=== PATIENT | female | born 1975 | race Two or more races ===

== ENCOUNTER 2017-03-18 15:17 | Emergency (ER) | payer OTHER ==
[~2017-03-18] VITALS: Ht 144.8 cm; Wt 63.5 kg
[~2017-03-18 15:17] MED LIST: LISI-334 PO; ONDA4TAB10 SL
[2017-03-18] MEDS ORDERED: IV NORMAL SALINE 1000ML BAG 1,000 ML IV SCH (15:54)
[2017-03-18] MEDS ORDERED: 0.9 % SODIUM CHLORIDE 10 ML DISP.SYRIN. IV PRN (16:00)
[2017-03-18] MEDS ORDERED: LABETALOL 20 MG/4 ML DISP.SYRIN. IVP ONE (16:00)
--- NOTE | 2017-03-18 16:05 | PHYS DOC ---
Past Medical History Past Medical History: Hypertension, IBS Additional Past Medical Histor: CERVICAL CANCER,BOWEL OBSTRUCTION,vonwillebrand , radiation treatment Past Surgical History: Appendectomy, Cholecystectomy, Hysterectomy, Other Additional Past Surgical Histo: BOWEL RESECTION Alcohol Use: None Drug Use: None Adult General Chief Complaint Chief Complaint: HEADACHE HPI HPI This is a pleasant 42-year-old female with a history of IBS, bowel resection after cervical cancer radiation and short part of her bowel with recent bowel movement injection within the last year, history of migraines, history of prior cholecystectomy and appendectomy who presents as a 001 not having any menstrual periods because of headache and diarrhea. Patient has chronic diarrhea all the time the diarrheal stool is actually increased and watery consistency creating a feeling of dehydration. She denies any abdominal pain, nausea or vomiting. She does have a migraine headache described as frontal throbbing not worst of life and sudden onset by niece for eyes. She has some mildly blurred vision with photophobia which is typical for her. She denies any neck stiffness, actual change in vision, fevers, chills, URI symptoms, runny nose, sore throat, or numbness or tingling. Patient's headache is moderate to severe 9 of 10 not responsive to her typical medications. She denies any trauma , travel or sick contacts. Review of Systems Review of Systems Constitutional: Denies fever or chills [] Eyes: Denies change in visual acuity, redness, or eye pain [] HENT: Denies nasal congestion or sore throat [] Respiratory: Denies cough or shortness of breath [] Cardiovascular: No additional information not addressed in HPI [] GI: Patient denies any abdominal pain but is having nausea without vomiting she is having diarrhea described as loose without blood. : Denies dysuria or hematuria [] Musculoskeletal: Denies back pain or joint pain [] Integument: Denies rash or skin lesions [] Neurologic: He is having a frontal headache not worse of life and not sudden onset no focal weakness or sensory changes. Endocrine: Denies polyuria or polydipsia [] All other systems were reviewed and found to be within normal limits, except as documented in this note. Current Medications Current Medications Current Medications Medications (Trade) Dose Ordered Sig/Basilia Start Time Stop Time Status Last Admin Dose Admin Dexamethasone Sodium Phosphate (Decadron) 10 mg 1X ONCE 03/18/17 16:30 03/18/17 16:31 DC 03/18/17 16:27 10 MG Diphenhydramine HCl (Benadryl) 50 mg 1X ONCE 03/18/17 16:30 03/18/17 16:31 DC 03/18/17 16:33 50 MG Labetalol HCl (Normodyne) 20 mg 1X ONCE 03/18/17 16:00 03/18/17 16:01 DC 03/18/17 17:06 20 MG Lorazepam (Ativan) 1 mg 1X ONCE 03/18/17 16:00 03/18/17 16:01 DC 03/18/17 16:38 1 MG Prochlorperazine Edisylate (Compazine) 10 mg 1X ONCE 03/18/17 16:30 03/18/17 16:31 DC 03/18/17 16:41 10 MG Sodium Chloride (Normal Saline Flush) 10 ml QSHIFT PRN 03/18/17 16:00 Allergies Allergies Allergies Coded Allergies Type Severity Reaction Last Updated Verified aspirin Adverse Reaction Severe bleeding 12/14/15 Yes ibuprofen Adverse Reaction Severe bleeding 12/14/15 Yes Physical Exam Physical Exam Vital signs recorded on the chart patient to be very hypertensive. He 226/128 Constitutional: Well developed, well nourished, this patient is very uncomfortable but nontoxic in appearance HENT: Normocephalic, atraumatic, bilateral external ears normal, dry mucous membranes., no oral exudates, nose normal. [] Eyes: PERRLA, EOMI, conjunctiva normal, no discharge. [] Neck: Normal range of motion, no tenderness, supple, no stridor. [] Cardiovascular:Heart rate regular rhythm, no murmur [] Lungs & Thorax: Bilateral breath sounds clear to auscultation [] Abdomen: Bowel sounds are hyperactive abdomen is soft nondistended no guarding rebound or organomegaly. Skin: Warm, dry, no erythema, no rash. [] Back: No tenderness, Extremities: No tenderness, no cyanosis, no clubbing, ROM intact, no edema. [] Neurologic: Alert and oriented X 3, normal motor function, normal sensory function, no focal deficits noted. [] Psychologic: Affect normal, judgement normal, mood normal. [] Current Patient Data Vital Signs Vital Signs Date Time Temp Pulse Resp B/P (MAP) Pulse Ox O2 Delivery O2 Flow Rate FiO2 03/18/17 17:06 82 204/95 03/18/17 15:50 98.2 20 97 Room Air 98.2 Lab Values Laboratory Tests Test 03/18/17 15:55 03/18/17 16:10 Urine Collection Type Unknown Urine Color Yellow Urine Clarity Clear Urine pH 6.0 Urine Specific [place] 1.020 Urine Protein Negative mg/dL (NEG-TRACE) Urine Glucose (UA) Negative mg/dL (NEG) Urine Ketones (Stick) Negative mg/dL (NEG) Urine Blood Moderate (NEG) Urine Nitrite Negative (NEG) Urine Bilirubin Negative (NEG) Urine Urobilinogen Dipstick 0.2 mg/dL (0.2 mg/dL) Urine Leukocyte Esterase Negative (NEG) Urine RBC Occ /HPF (0-2) Urine WBC Rare /HPF (0-4) Urine Squamous Epithelial Cells Mod /LPF Urine Bacteria Few /HPF (0-FEW) Urine Mucus Marked /LPF White Blood Count 8.1 x10^3/uL (4.0-11.0) Red Blood Count 4.29 x10^6/uL (3.50-5.40) Hemoglobin 13.3 g/dL (12.0-15.5) Hematocrit 39.3 % (36.0-47.0) Mean Corpuscular Volume 92 fL (79-100) Mean Corpuscular Hemoglobin 31 pg (25-35) Mean Corpuscular Hemoglobin Concent 34 g/dL (31-37) Red Cell Distribution Width 12.6 % (11.5-14.5) Platelet Count 214 x10^3/uL (140-400) Neutrophils (%) (Auto) 85 % (31-73) H Lymphocytes (%) (Auto) 11 % (24-48) L Monocytes (%) (Auto) 4 % (0-9) Eosinophils (%) (Auto) 1 % (0-3) Basophils (%) (Auto) 0 % (0-3) Neutrophils # (Auto) 6.8 x10^3uL (1.8-7.7) Lymphocytes # (Auto) 0.9 x10^3/uL (1.0-4.8) L Monocytes # (Auto) 0.3 x10^3/uL (0.0-1.1) Eosinophils # (Auto) 0.0 x10^3/uL (0.0-0.7) Basophils # (Auto) 0.0 x10^3/uL (0.0-0.2) Sodium Level 138 mmol/L (136-145) Potassium Level 3.9 mmol/L (3.5-5.1) Chloride Level 102 mmol/L (98-107) Carbon Dioxide Level 27 mmol/L (21-32) Anion Gap 9 (6-14) Blood Urea Nitrogen 13 mg/dL (7-20) Creatinine 0.8 mg/dL (0.6-1.0) Estimated GFR (Cockcroft-Gault) 78.3 Glucose Level 110 mg/dL (70-99) H Calcium Level 8.7 mg/dL (8.5-10.1) Total Bilirubin 0.5 mg/dL (0.2-1.0) Direct Bilirubin 0.1 mg/dL (0.0-0.2) Aspartate Amino Transferase (AST) 38 U/L (15-37) H Alanine Aminotransferase (ALT) 90 U/L (14-59) H Alkaline Phosphatase 143 U/L (46-116) H Total Protein 7.3 g/dL (6.4-8.2) Albumin 3.9 g/dL (3.4-5.0) Lipase 74 U/L (73-393) Laboratory Tests 03/18/17 16:10 Laboratory Tests 03/18/17 16:10 EKG EKG [] Radiology/Procedures Radiology/Procedures [] IMAGING REPORT Signed PATIENT: ELIESER WALTON ACCOUNT: [id number] : 1975 LOCATION: ER AGE: 42 SEX: F EXAM STATUS: REG ER ORD. PHYSICIAN: REMINGTON WYATT MD REASON: headache with htn PROCEDURE: CT HEAD WO CONTRAST PQRS Compliance Statement: One or more of the following individualized dose reduction techniques were utilized for this examination: 1. Automated exposure control 2. Adjustment of the mA and/or kV according to patient size 3. Use of iterative reconstruction technique CT HEAD WITHOUT CONTRAST History: headache with htn . Comparison: None. Procedure: Axial images are obtained of the head from the skull base through the vertex without IV contrast. Findings: Garcia-white matter differentiation is preserved. The ventricles and sulci are normal for the patient's age.. No mass-effect, midline shift, hemorrhage or obvious acute infarction is identified. Basilar cisterns are patent. Bone windows demonstrate no significant calvarial abnormality. Mucous retention cyst or polyp right maxillary sinus. Maxillary sinuses incompletely imaged. The visualized paranasal sinuses otherwise appear clear. Mastoid air cells are well aerated. IMPRESSION: No acute intracranial abnormality. Course & Med Decision Making Course & Med Decision Making Pertinent Labs and Imaging studies reviewed. (See chart for details) []She presents with diarrhea and mild nausea with obvious signs of dehydration on physical exam with a frontal headache not worse of life consistent with her primary is. Patient has significant hypertension elevated as 226/128 I will give her IV fluids antiemetics pain medications none narcotic nature as well as CAT scan of the head to sure that she has no intracranial hemorrhage or mass lesion causing her symptoms. Patient tells me that their symptoms given during CC are improved. We reviewed labs and radiology reports with patient and any family at bedside. 5:15 PM sleeping quietly blood pressure is 166/82 patient's headache is on was completely dissipated. MDM headache reevaluation: The patient presented to the emergency part with headache. The patient is now resting comfortably and feels better, is awake, talkative, interactive, and in no acute distress. The patient appears well and is able to tolerate by mouth fluids and medications. Repeat evaluation is unremarkable without any specific neurologic findings. The patient is neurologically intact, has normal mental status, and is ambulatory in the ED. The history, exam, and any diagnostic testing completed in the ED (if any) and the patient's current condition do not suggest meningitis, stroke, sepsis, subarachnoid hemorrhage, intracranial bleed , encephalitis, temporal arteritis, or other significant pathology warranting further testing and continue treatment in the ED. At this point I do not believe admission or neurologic consultation or other specialist evaluation are needed at this point. The patient's vital signs have been stabilized. Patient' s condition is stable and appropriate for discharge. The patient will pursue further up and evaluation with primary care and other designated resources or consulting physicians as indicated in the discharge instructions. Dragon Disclaimer Dragon Disclaimer This electronic medical record was generated, in whole or in part, using a voice recognition dictation system. Departure Departure Impression: Primary Impression: Diarrhea Additional Impressions: Migraine Hypertension Disposition: HOME, SELF-CARE Condition: IMPROVED Referrals: NO PCP (PCP) Patient Instructions: Diarrhea, Hypertension, Migraine Headache Additional Instructions: discharge: I've spoken with the patient and/or caregivers. I've explained the patient's condition, diagnosis and treatment plan based on information available to me at this time. I've answered the patient's and/or caregivers questions and addressed any concerns. The patient and/or caregivers have a good understanding the patient's diagnosis, condition and treatment plan as can be expected at this point. Vital signs have been stabilized. The patient's condition is stable for discharge from the emergency department. The patient will pursue further outpatient evaluation with her primary care provider or other designated consulting physician as outlined in the discharge instructions. Patient and/or caregivers are agreeable to this plan of care and follow-up instructions have been explained in detail. The patient and/or caregivers have received these instructions in written format and expressed understanding of these discharge instructions. The patient and her caregivers are aware that if any significant change in condition or worsening of symptoms should prompt him to immediately return to this of the closest emergency department. If an emergent department is not readily available I would encourage him to call 911. . Because patient does not have a regular medical doctor, a local physician Resource Sheet will be provided to establish care primary care. Scripts Diphenoxylate Hcl/Atropine (LOMOTIL TABLET) 1 Each Tablet 1 TAB PO QID, #20 TAB Prov: REMINGTON WYATT MD 03/18/17 Sumatriptan Succinate (IMITREX) 100 Mg Tablet 1 TAB PO UD, #9 TAB 1 Refill Prov: REMINGTON WYATT MD 03/18/17 Prochlorperazine Maleate (Compazine) 10 Mg Tablet 10 MG PO TID for 5 Days, #15 TAB Prov: REMINGTON WYATT MD 03/18/17 Problem Qualifiers REMINGTON WYATT MD Mar 18, 2017 16:05
[2017-03-18 16:15] LABS: BASO % 0 % (0-3); EOS % 1 % (0-3); HEMATOCRIT 39.3 % (36.0-47.0); HEMOGLOBIN 13.3 g/dL (12.0-15.5); LYMPH # 0.9 x10^3/uL (1.0-4.8); LYMPH % 11 % (24-48); MEAN CORPUSCULAR HEMOGLOBIN 31 pg (25-35); MEAN CORPUSCULAR HGB CONC 34 g/dL (31-37); MEAN CORPUSCULAR VOLUME 92 fL (79-100); MONO % 4 % (0-9); NEUT % 85 % (31-73); PLATELET COUNT 214 x10^3/uL (140-400); RED BLOOD COUNT 4.29 x10^6/uL (3.50-5.40); RED CELL DISTRIBUTION WIDTH 12.6 % (11.5-14.5); WHITE BLOOD COUNT 8.1 x10^3/uL (4.0-11.0)
[2017-03-18 16:16] LABS: BILIRUBIN,URINE NEGATIVE (NEG); GLUCOSE,URINE NEGATIVE (NEG); NITRITE,URINE NEGATIVE (NEG); PROTEIN,URINE NEGATIVE (NEG-TRACE); UROBILINOGEN,URINE 0.2 mg/dL (0.2 mg/dL)
[2017-03-18] MEDS ORDERED: DEXAMETHASONE SOD PHOS 20 MG/5 ML VIAL. IV ONE (16:30)
[2017-03-18] MEDS ORDERED: diphenhydrAMINE 50 MG/ML VIAL IVP ONE (16:30)
[2017-03-18] MEDS ORDERED: PROCHLORPERAZINE 10 MG/2 ML VIAL. IV ONE (16:30)
[2017-03-18 16:32] LABS: RBC,URINE OCC /HPF (0-2)
[2017-03-18 16:33] LABS: BACTERIA,URINE FEW /HPF (0-FEW); SQUAMOUS EPITHELIAL CELL,UR MOD /LPF; WBC,URINE RARE /HPF (0-4)
[2017-03-18 16:38] LABS: CALCIUM 8.7 mg/dL (8.5-10.1); CREATININE 0.8 mg/dL (0.6-1.0); GFR 78.3; POTASSIUM 3.9 mmol/L (3.5-5.1)
[2017-03-18 16:42] LABS: ALBUMIN 3.9 g/dL (3.4-5.0); DIRECT BILIRUBIN 0.1 mg/dL (0.0-0.2); TOTAL BILIRUBIN 0.5 mg/dL (0.2-1.0); TOTAL PROTEIN 7.3 g/dL (6.4-8.2)
--- NOTE | 2017-03-18 17:05 | RAD ---
PQRS Compliance Statement: One or more of the following individualized dose reduction techniques were utilized for this examination: 1. Automated exposure control 2. Adjustment of the mA and/or kV according to patient size 3. Use of iterative reconstruction technique CT HEAD WITHOUT CONTRAST History: headache with htn . Comparison: None. Procedure: Axial images are obtained of the head from the skull base through the vertex without IV contrast. Findings: Garcia-white matter differentiation is preserved. The ventricles and sulci are normal for the patient's age.. No mass-effect, midline shift, hemorrhage or obvious acute infarction is identified. Basilar cisterns are patent. Bone windows demonstrate no significant calvarial abnormality. Mucous retention cyst or polyp right maxillary sinus. Maxillary sinuses incompletely imaged. The visualized paranasal sinuses otherwise appear clear. Mastoid air cells are well aerated. IMPRESSION: No acute intracranial abnormality.
[2017-03-18 17:15] VITALS: BP 169/69
[2017-03-18] MEDS ORDERED: PROC10TA57 PO (17:27)
[2017-03-18] MEDS ORDERED: DIPH1TAB PO (17:27)
[2017-03-18] MEDS ORDERED: SUMA100T3 PO (17:27)
== END 2017-03-18 18:20 | disposition home or self-care (01) ==
LOC: ER 15:17
DX: R19.7 Diarrhea, unspecified (principal); G43.909 Migraine, unspecified, not intractable, without status migrainosus; I10 Essential (primary) hypertension; K58.9 Irritable bowel syndrome, unspecified; K56.609 Unspecified intestinal obstruction, unspecified as to partial versus complete obstruction; Z88.6 Allergy status to analgesic agent; Z90.49 Acquired absence of other specified parts of digestive tract
CPT/HCPCS: 36415; 70450; 80048; 80076; 81001; 81025; 83690; 85025; 96361; 96374; 96375; 99285; J0780; J1100; J1200; J2060; J3490; J7030

== ENCOUNTER 2018-01-12 04:28 | Emergency (ER) | payer SELFPAY ==
[~2018-01-12] VITALS: Ht 157.5 cm; Wt 74.8 kg
[~2018-01-12 04:28] MED LIST changes: +DIPH1TAB PO; +PROC10TA57 PO; +SUMA100T3 PO
[2018-01-12] MEDS ORDERED: DEXAMETHASONE 4 MG TABLET ONE (04:52)
[2018-01-12] MEDS ORDERED: ORPHENADRINE CITRATE 60 MG/2 ML VIAL. IM ONE (05:00)
[2018-01-12] MEDS ORDERED: LIDOCAINE (700MG/PATCH) PATCH. TD ONE (05:00)
[2018-01-12] MEDS ORDERED: DEXAMETHASONE 4 MG TABLET PO ONE (05:00)
[2018-01-12] MEDS ORDERED: HYDROcodone/APAP 5/325MG 1 TAB TABLET PO ONE (05:00)
[2018-01-12] MEDS ORDERED: LIDO700A39 TP (05:36)
[2018-01-12] MEDS ORDERED: ORPH100T PO (05:36)
[2018-01-12] MEDS ORDERED: HYDR-971 PO (05:36)
[2018-01-12] MEDS ORDERED: PRED20TA PO (05:36)
--- NOTE | 2018-01-12 05:36 | PHYS DOC ---
Past Medical History Past Medical History: Hypertension, IBS Additional Past Medical Histor: CERVICAL CANCER,BOWEL OBSTRUCTION,vonwillebrand , radiation treatment Past Surgical History: Appendectomy, Cholecystectomy, Hysterectomy, Other Additional Past Surgical Histo: BOWEL RESECTION Alcohol Use: None Drug Use: None Adult General Chief Complaint Chief Complaint: LOWER BACK PAIN OR INJURY HPI HPI Patient is a 42 year old [f__sex] who presents with [] Review of Systems Review of Systems Constitutional: Denies fever or chills [] Eyes: Denies change in visual acuity, redness, or eye pain [] HENT: Denies nasal congestion or sore throat [] Respiratory: Denies cough or shortness of breath [] Cardiovascular: No additional information not addressed in HPI [] GI: Denies abdominal pain, nausea, vomiting, bloody stools or diarrhea [] : Denies dysuria or hematuria [] Musculoskeletal: Denies back pain or joint pain [] Integument: Denies rash or skin lesions [] Neurologic: Denies headache, focal weakness or sensory changes [] Endocrine: Denies polyuria or polydipsia [] All other systems were reviewed and found to be within normal limits, except as documented in this note. Current Medications Current Medications Current Medications Medications (Trade) Dose Ordered Sig/Basilia Start Time Stop Time Status Last Admin Dose Admin Acetaminophen/ Hydrocodone Bitart (Lortab 5/325) 2 tab 1X ONCE 01/12/18 05:00 01/12/18 05:01 DC 01/12/18 05:03 2 TAB Dexamethasone (Decadron) 4 mg STK-MED ONCE 01/12/18 04:52 01/12/18 04:53 DC Lidocaine (Lidoderm) 1 patch 1X ONCE 01/12/18 05:00 01/12/18 05:01 DC 01/12/18 05:04 1 PATCH Orphenadrine Citrate (Norflex) 60 mg 1X ONCE 01/12/18 05:00 01/12/18 05:01 DC 01/12/18 05:04 60 MG Allergies Allergies Allergies Coded Allergies Type Severity Reaction Last Updated Verified aspirin Adverse Reaction Severe bleeding 12/14/15 Yes ibuprofen Adverse Reaction Severe bleeding 12/14/15 Yes Physical Exam Physical Exam Constitutional: Well developed, well nourished, no acute distress, non-toxic appearance. [] HENT: Normocephalic, atraumatic, bilateral external ears normal, oropharynx moist, no oral exudates, nose normal. [] Eyes: PERRLA, EOMI, conjunctiva normal, no discharge. [] Neck: Normal range of motion, no tenderness, supple, no stridor. [] Cardiovascular:Heart rate regular rhythm, no murmur [] Lungs & Thorax: Bilateral breath sounds clear to auscultation [] Abdomen: Bowel sounds normal, soft, no tenderness, no masses, no pulsatile masses. [] Skin: Warm, dry, no erythema, no rash. [] Back: No tenderness, no CVA tenderness. [] Extremities: No tenderness, no cyanosis, no clubbing, ROM intact, no edema. [] Neurologic: Alert and oriented X 3, normal motor function, normal sensory function, no focal deficits noted. [] Psychologic: Affect normal, judgement normal, mood normal. [] Current Patient Data Vital Signs Vital Signs Date Time Temp Pulse Resp B/P (MAP) Pulse Ox O2 Delivery O2 Flow Rate FiO2 01/12/18 05:03 18 99 EKG EKG [] Radiology/Procedures Radiology/Procedures [] Course & Med Decision Making Course & Med Decision Making Pertinent Labs and Imaging studies reviewed. (See chart for details) [] Dragon Disclaimer Dragon Disclaimer This electronic medical record was generated, in whole or in part, using a voice recognition dictation system. Departure Departure Impression: Primary Impression: Low back pain Additional Impression: Sciatica Disposition: 01 HOME, SELF-CARE Condition: IMPROVED Referrals: NO PCP (PCP) LESLY PHIPPS MD Patient Instructions: Back Pain, Adult, [id number], Sciatica, [id number] Scripts Lidocaine (Lidocaine) 1 Each Adh..patch 1 EACH TP Q12HR PRN for PAIN, #10 PATCH Please remove lidoderm patch for at least 12 hours daily. Prov: LISA HOUSE DO 01/12/18 Prednisone (PREDNISONE) 20 Mg Tablet 2 TAB PO DAILY, #8 TAB Prov: LISA HOUSE DO 01/12/18 Orphenadrine Citrate (ORPHENADRINE CITRATE) 100 Mg Tablet.er 1 TAB PO BID, #14 TAB 0 Refills Prov: LISA HOUSE DO 01/12/18 Hydrocodone/Apap 5-325 (NORCO 5-325 TABLET) 1 Each Tablet 1 TAB PO PRN Q6HRS PRN for PAIN, #14 TAB 0 Refills Prov: LISA HOUSE DO 01/12/18 Problem Qualifiers Primary Impression: Low back pain Chronicity: acute Back pain laterality: right Sciatica presence: with sciatica Sciatica laterality: sciatica of right side Qualified Codes: M54.41 - Lumbago with sciatica, right side Additional Impression: Sciatica Laterality: right Qualified Codes: M54.31 - Sciatica, right side LISA HOUSE DO Jan 12, 2018 05:36
[2018-01-12 05:39] VITALS: BP 210/100
== END 2018-01-12 05:54 | disposition home or self-care (01) ==
LOC: ER 04:28
DX: M54.41 Lumbago with sciatica, right side (principal); I10 Essential (primary) hypertension; Z90.49 Acquired absence of other specified parts of digestive tract; Z90.710 Acquired absence of both cervix and uterus; Z90.89 Acquired absence of other organs; Z88.6 Allergy status to analgesic agent
CPT/HCPCS: 96372; 99284; J2360; J8540

== ENCOUNTER 2018-11-01 09:06 | Inpatient (IN) | payer SELFPAY ==
[~2018-11-01] VITALS: Ht 144.8 cm; Wt 65.8 kg
[~2018-11-01 09:06] MED LIST changes: +HYDR-3164 PO; +LIDO700A21 TP; +ORPH100T PO; +PRED20TA PO
[2018-11-01] MEDS ORDERED: MORPHINE SULFATE 10 MG/ML VIAL. IV ONE ×2 (09:30→12:00)
[2018-11-01] MEDS ORDERED: IV NORMAL SALINE 1000ML BAG 1,000 ML IV ONE ×2 (09:30→13:45)
[2018-11-01] MEDS ORDERED: ONDANSETRON PF 4 MG/2 ML VIAL. IV ONE (09:30)
--- NOTE | 2018-11-01 09:49 | PHYS DOC ---
Past Medical History Past Medical History: Gallstones, Other Additional Past Medical Histor: BOWEL OBSTRUCTION, CERVICAL CANCER, RADIATION, Past Surgical History: Appendectomy, Cholecystectomy, Hysterectomy Additional Past Surgical Histo: BOWEL RESECTION, HYSTERECTOMY D/T CERVICAL CA Alcohol Use: Rarely Drug Use: None Adult General Chief Complaint Chief Complaint: ABDOMINAL PAIN HPI HPI Patient is a 43 year old female with a history of cholecystectomy, appendectomy, small bowel obstructions with bowel resection, cervical cancer and treated, who presents to the ED today complaining of 8 out of 10 generalized abdominal pain with nausea and vomiting that began this morning. Patient denies anything specifically exacerbating or relieving the pain. Patient states she had a normal bowel movement today. Review of Systems Review of Systems Constitutional: Denies fever or chills [] Eyes: Denies change in visual acuity, redness, or eye pain [] HENT: Denies nasal congestion or sore throat [] Respiratory: Denies cough or shortness of breath [] Cardiovascular: No additional information not addressed in HPI [] GI: Reports abdominal pain, nausea and vomiting, denies bloody stools or diarrhea [] : Denies dysuria or hematuria [] Musculoskeletal: Denies back pain or joint pain [] Integument: Denies rash or skin lesions [] Neurologic: Denies headache, focal weakness or sensory changes [] All other systems were reviewed and found to be within normal limits, except as documented in this note. Current Medications Current Medications Current Medications Medications (Trade) Dose Ordered Sig/Basilia Start Time Stop Time Status Last Admin Dose Admin Info (CONTRAST GIVEN -- Rx MONITORING) 1 each PRN DAILY PRN 11/01/18 10:15 11/03/18 10:14 Iohexol (Omnipaque 300 Mg/ml) 75 ml 1X ONCE 11/01/18 10:15 11/01/18 10:16 DC 11/01/18 10:19 75 ML Morphine Sulfate (Morphine Sulfate) 4 mg PRN Q4HRS PRN 11/01/18 13:15 Ondansetron HCl (Zofran) 4 mg PRN Q8HRS PRN 11/01/18 13:15 Sodium Chloride 1,000 ml @ 1,000 mls/hr 1X ONCE 11/01/18 09:30 11/01/18 10:29 DC 11/01/18 09:47 1,000 MLS/HR Allergies Allergies Allergies Coded Allergies Type Severity Reaction Last Updated Verified aspirin Adverse Reaction Severe bleeding 12/14/15 Yes ibuprofen Adverse Reaction Severe bleeding 12/14/15 Yes Physical Exam Physical Exam Constitutional: Well developed, well nourished, no acute distress, non-toxic appearance. [] HENT: Normocephalic, atraumatic, bilateral external ears normal, oropharynx moist, no oral exudates, nose normal. [] Eyes: PERRLA, EOMI, conjunctiva normal, no discharge. [] Neck: Normal range of motion, no tenderness, supple, no stridor. [] Cardiovascular:Heart rate regular rhythm, no murmur [] Lungs & Thorax: Bilateral breath sounds clear to auscultation [] Abdomen: Diminished bowel sounds, tenderness diffusely throughout the abdomen, no masses, no pulsatile masses. [] Skin: Warm, dry, no erythema, no rash. [] Back: No tenderness, no CVA tenderness. [] Extremities: No tenderness, no cyanosis, no clubbing, ROM intact, no edema. [] Neurologic: Alert and oriented X 3, normal motor function, normal sensory function, no focal deficits noted. [] Psychologic: Affect normal, judgement normal, mood normal. [] Current Patient Data Vital Signs Vital Signs Date Time Temp Pulse Resp B/P (MAP) Pulse Ox O2 Delivery O2 Flow Rate FiO2 11/01/18 12:15 17 97 Room Air 11/01/18 11:00 64 180/92 (121) 11/01/18 09:35 97.7 97.7 Lab Values Laboratory Tests Test 11/01/18 09:22 11/01/18 09:40 White Blood Count 6.7 x10^3/uL (4.0-11.0) Red Blood Count 4.29 x10^6/uL (3.50-5.40) Hemoglobin 13.3 g/dL (12.0-15.5) Hematocrit 39.3 % (36.0-47.0) Mean Corpuscular Volume 92 fL (79-100) Mean Corpuscular Hemoglobin 31 pg (25-35) Mean Corpuscular Hemoglobin Concent 34 g/dL (31-37) Red Cell Distribution Width 12.8 % (11.5-14.5) Platelet Count 186 x10^3/uL (140-400) Neutrophils (%) (Auto) 70 % (31-73) Lymphocytes (%) (Auto) 18 % (24-48) L Monocytes (%) (Auto) 7 % (0-9) Eosinophils (%) (Auto) 5 % (0-3) H Basophils (%) (Auto) 1 % (0-3) Neutrophils # (Auto) 4.7 x10^3uL (1.8-7.7) Lymphocytes # (Auto) 1.2 x10^3/uL (1.0-4.8) Monocytes # (Auto) 0.5 x10^3/uL (0.0-1.1) Eosinophils # (Auto) 0.3 x10^3/uL (0.0-0.7) Basophils # (Auto) 0.0 x10^3/uL (0.0-0.2) Urine Collection Type Unknown Urine Color Yellow Urine Clarity Clear Urine pH 5.5 Urine Specific [place] 1.020 Urine Protein Negative mg/dL (NEG-TRACE) Urine Glucose (UA) Negative mg/dL (NEG) Urine Ketones (Stick) Negative mg/dL (NEG) Urine Blood Small (NEG) Urine Nitrite Negative (NEG) Urine Bilirubin Negative (NEG) Urine Urobilinogen Dipstick 0.2 mg/dL (0.2 mg/dL) Urine Leukocyte Esterase Negative (NEG) Urine RBC 1-2 /HPF (0-2) Urine WBC 0 /HPF (0-4) Urine Squamous Epithelial Cells Few /LPF Urine Bacteria 0 /HPF (0-FEW) Sodium Level 139 mmol/L (136-145) Potassium Level 4.1 mmol/L (3.5-5.1) Chloride Level 106 mmol/L (98-107) Carbon Dioxide Level 25 mmol/L (21-32) Anion Gap 8 (6-14) Blood Urea Nitrogen 13 mg/dL (7-20) Creatinine 1.0 mg/dL (0.6-1.0) Estimated GFR (Cockcroft-Gault) 60.2 BUN/Creatinine Ratio 13 (6-20) Glucose Level 104 mg/dL (70-99) H Calcium Level 8.8 mg/dL (8.5-10.1) Total Bilirubin 0.5 mg/dL (0.2-1.0) Aspartate Amino Transferase (AST) 35 U/L (15-37) Alanine Aminotransferase (ALT) 56 U/L (14-59) Alkaline Phosphatase 112 U/L (46-116) Total Protein 6.8 g/dL (6.4-8.2) Albumin 3.6 g/dL (3.4-5.0) Albumin/Globulin Ratio 1.1 (1.0-1.7) Lipase 92 U/L (73-393) Urine Opiates Screen Neg (NEG) Urine Methadone Screen Neg (NEG) Urine Barbiturates Neg (NEG) Urine Phencyclidine Screen Neg (NEG) Urine Amphetamine/Methamphetamine Neg (NEG) Urine Benzodiazepines Screen Neg (NEG) Urine Cocaine Screen Neg (NEG) Urine Cannabinoids Screen Neg (NEG) Ethyl Alcohol Level < 10 mg/dL (0-10) Urine Ethyl Alcohol Neg (NEG) Laboratory Tests 11/01/18 09:22 Laboratory Tests 11/01/18 09:40 EKG EKG [] Radiology/Procedures Radiology/Procedures []PROCEDURE: CT ABD PELV W/ IV CONTRST ONLY PQRS Compliance Statement: One or more of the following individualized dose reduction techniques were utilized for this examination: 1. Automated exposure control 2. Adjustment of the mA and/or kV according to patient size 3. Use of iterative reconstruction technique CT ABD PELV W/ IV CONTRST ONLY Clinical Indication: Generalized abdominal pain. Comparison: CT abdomen and pelvis with contrast, December 27, 2015. Technique: Helical CT imaging of the abdomen and pelvis is performed after 75 cc of Omnipaque 300 IV contrast. Oral contrast not given. Findings: Mild atelectasis in the right lung base. Cardiac size normal. Cholecystectomy. Liver, spleen, pancreas, adrenal glands, and abdominal aorta are normal. Kidneys enhance symmetrically, no hydronephrosis. There is mild right hydroureter. No ureteral calculus or periureteral stranding is seen. Stomach unremarkable. There is small bowel anastomosis, perianastomotic small bowel is dilated, similar to prior study. Distal small bowel loops are dilated and fluid-filled. Small bowel proximal to the anastomosis is thick-walled, for example image 55. The terminal ileum is normal caliber. Appendectomy. No colon wall thickening. No abdominal adenopathy or free fluid. Urinary bladder is normal. Hysterectomy. No pelvic free fluid. Degenerative endplate spurring of the thoracic spine. Arthropathy of the bilateral hips. IMPRESSION: There is distal small bowel obstruction. Small bowel proximal to the surgical anastomosis is thick-walled, and this may be the point of transition. Wall thickening of the small bowel may be due to enteritis, peristalsis, or stricture. Electronically signed by: Andrea Wilson MD (11/01/2018 11:28 AM) [id number] DICTATED and SIGNED BY: ANDREA WILSON MD DATE: 11/01/18 1128 Course & Med Decision Making Course & Med Decision Making Pertinent Labs and Imaging studies reviewed. (See chart for details) This is a 43-year-old female patient who presents to the ED today complaining of generalized abdominal pain with nausea and vomiting since this morning. CBC, CMP, lipase, urine analysis-negative for any acute findings CT of the abdomen and pelvic was noted for small bowel obstruction. [id number] Low who will f/u with patient Spoke with Dr. Aragon accepted patient for admission. Dragon Disclaimer Dragon Disclaimer This electronic medical record was generated, in whole or in part, using a voice recognition dictation system. Departure Departure Impression: Primary Impression: SBO (small bowel obstruction) Disposition: ADMITTED INPATIENT Condition: STABLE Referrals: NO PCP (PCP) KAN BARR [employer] MACH[employer] APPRENTICE Nov 01, 2018 09:49
[2018-11-01 09:55] LABS: BASO % 1 % (0-3); EOS # 0.3 x10^3/uL (0.0-0.7); EOS % 5 % (0-3); HEMATOCRIT 39.3 % (36.0-47.0); HEMOGLOBIN 13.3 g/dL (12.0-15.5); LYMPH # 1.2 x10^3/uL (1.0-4.8); LYMPH % 18 % (24-48); MEAN CORPUSCULAR HEMOGLOBIN 31 pg (25-35); MEAN CORPUSCULAR HGB CONC 34 g/dL (31-37); MEAN CORPUSCULAR VOLUME 92 fL (79-100); MONO # 0.5 x10^3/uL (0.0-1.1); MONO % 7 % (0-9); NEUT # 4.7 x10^3uL (1.8-7.7); NEUT % 70 % (31-73); PLATELET COUNT 186 x10^3/uL (140-400); RED BLOOD COUNT 4.29 x10^6/uL (3.50-5.40); RED CELL DISTRIBUTION WIDTH 12.8 % (11.5-14.5); WHITE BLOOD COUNT 6.7 x10^3/uL (4.0-11.0)
[2018-11-01 10:03] LABS: BILIRUBIN,URINE NEGATIVE (NEG); CLARITY,URINE CLEAR; COLOR,URINE YELLOW; NITRITE,URINE NEGATIVE (NEG); PH,URINE 5.5; PROTEIN,URINE NEGATIVE (NEG-TRACE); UROBILINOGEN,URINE 0.2 mg/dL (0.2 mg/dL)
[2018-11-01 10:03] LABS: CALCIUM 8.8 mg/dL (8.5-10.1); GFR 60.2; POTASSIUM 4.1 mmol/L (3.5-5.1)
[2018-11-01 10:09] LABS: ALBUMIN 3.6 g/dL (3.4-5.0); ALBUMIN/GLOBULIN RATIO 1.1 (1.0-1.7); TOTAL BILIRUBIN 0.5 mg/dL (0.2-1.0); TOTAL PROTEIN 6.8 g/dL (6.4-8.2)
[2018-11-01 10:10] LABS: BARBITURATES NEG (NEG); BENZODIAZEPINES NEG (NEG); CANNABINOIDS NEG (NEG); COCAINE NEG (NEG); METHADONE NEG (NEG); OPIATES NEG (NEG); PHENCYCLIDINE NEG (NEG)
[2018-11-01 10:11] LABS: AMPHETAMINE/METHAMPHETAMINE NEG (NEG)
[2018-11-01] MEDS ORDERED: CONTRAST GIVEN. MC PRN (10:15)
[2018-11-01] MEDS ORDERED: IOHEXOL 300 MG/ML 100ML VIAL. IV ONE (10:15)
[2018-11-01 10:34] LABS: BACTERIA,URINE 0 /HPF (0-FEW); SQUAMOUS EPITHELIAL CELL,UR FEW /LPF; WBC,URINE 0 /HPF (0-4)
--- NOTE | 2018-11-01 11:31 | RAD ---
PQRS Compliance Statement: One or more of the following individualized dose reduction techniques were utilized for this examination: 1. Automated exposure control 2. Adjustment of the mA and/or kV according to patient size 3. Use of iterative reconstruction technique CT ABD PELV W/ IV CONTRST ONLY Clinical Indication: Generalized abdominal pain. Comparison: CT abdomen and pelvis with contrast, December 27, 2015. Technique: Helical CT imaging of the abdomen and pelvis is performed after 75 cc of Omnipaque 300 IV contrast. Oral contrast not given. Findings: Mild atelectasis in the right lung base. Cardiac size normal. Cholecystectomy. Liver, spleen, pancreas, adrenal glands, and abdominal aorta are normal. Kidneys enhance symmetrically, no hydronephrosis. There is mild right hydroureter. No ureteral calculus or periureteral stranding is seen. Stomach unremarkable. There is small bowel anastomosis, perianastomotic small bowel is dilated, similar to prior study. Distal small bowel loops are dilated and fluid-filled. Small bowel proximal to the anastomosis is thick-walled, for example image 55. The terminal ileum is normal caliber. Appendectomy. No colon wall thickening. No abdominal adenopathy or free fluid. Urinary bladder is normal. Hysterectomy. No pelvic free fluid. Degenerative endplate spurring of the thoracic spine. Arthropathy of the bilateral hips. IMPRESSION: There is distal small bowel obstruction. Small bowel proximal to the surgical anastomosis is thick-walled, and this may be the point of transition. Wall thickening of the small bowel may be due to enteritis, peristalsis, or stricture. Electronically signed by: Andrea Wilson MD (11/01/2018 11:28 AM) [id number]
[2018-11-01 13:45] VITALS: BP 169/94
[2018-11-01] MEDS ORDERED: ONDANSETRON PF 4 MG/2 ML VIAL. IV PRN (13:45)
[2018-11-01] MEDS ORDERED: MORPHINE SULFATE 4 MG/ML VIAL. IV PRN (13:45)
[2018-11-01 15:00] VITALS: BP 169/94
[2018-11-01] MEDS: NICOTINE 14MG PATCH. TD SCH (15:02)
[2018-11-01] MEDS: MORPHINE SULFATE 4 MG/ML VIAL. IV PRN ×3 (15:02→23:52)
[2018-11-01] MEDS: ONDANSETRON PF 4 MG/2 ML VIAL. IV PRN (15:03)
--- NOTE | 2018-11-01 15:32 | PDOC2 ---
CONSULT Date of Consult Date of Consult DATE: 11/01/18 TIME: 15:29 Reason for Consult Reason for Consult: SBO Referring Physician Referring Physician: Mahesh Identification/Chief Complaint Chief Complaint abd pain Source Source: Chart review, Patient History of Present Illness Reason for Visit: 43 yo F with hx of surgical correction of SBO, concerning for ischemic/radiation damage. Pt notes bowels have not been normal every since and perhaps before. Presents with diffuse abd pain. Normal stool today. N/V earlier, but none currently, and does not have NGT. Past Medical History Cardiovascular: HTN GI: Other Heme/Onc: Cancer, Other Psych: No pertinent hx Musculoskeletal: low back pain Rheumatologic: No pertinent hx Infectious disease: No pertinent hx Past Surgical History Past Surgical History: Appendectomy, Cholecystectomy, Hysterectomy, Other (SB R,) Family History Family History: No Significant Social History 1 pack per day ALCOHOL: none Drugs: None Lives: Alone Current Problem List Problem List Problems Medical Problems: (1) SBO (small bowel obstruction) Status: Acute Current Medications Current Medications Current Medications Sodium Chloride 1,000 ml @ 1,000 mls/hr 1X ONCE IV Last administered on 11/01/18at 09:47; Start 11/01/18 at 09:30; Stop 11/01/18 at 10:29; Status DC Morphine Sulfate (Morphine Sulfate) 5 mg 1X ONCE IV Last administered on 11/01/18at 09:48; Start 11/01/18 at 09:30; Stop 11/01/18 at 09:31; Status DC Ondansetron HCl (Zofran) 4 mg 1X ONCE IV Last administered on 11/01/18at 09:45; Start 11/01/18 at 09:30; Stop 11/01/18 at 09:31; Status DC Iohexol (Omnipaque 300 Mg/ml) 75 ml 1X ONCE IV Last administered on 11/01/18at 10:19; Start 11/01/18 at 10:15; Stop 11/01/18 at 10:16; Status DC Info (CONTRAST GIVEN -- Rx MONITORING) 1 each PRN DAILY PRN MC SEE COMMENTS; Start 11/01/18 at 10:15; Stop 11/03/18 at 10:14 Morphine Sulfate (Morphine Sulfate) 5 mg 1X ONCE IV Last administered on 11/01/18at 12:15; Start 11/01/18 at 12:00; Stop 11/01/18 at 12:01; Status DC Morphine Sulfate (Morphine Sulfate) 4 mg PRN Q4HRS PRN IV pain Last administered on 11/01/18at 15:02; Start 11/01/18 at 13:15 Ondansetron HCl (Zofran) 4 mg PRN Q8HRS PRN IV NAUSEA/VOMITING Last administered on 11/01/18at 15:03; Start 11/01/18 at 13:15 Ondansetron HCl (Zofran) 4 mg PRN Q8HRS PRN IV NAUSEA/VOMITING; Start 11/01/18 at 13:45; Stop 11/01/18 at 13:45; Status DC Morphine Sulfate (Morphine Sulfate) 4 mg PRN Q2HR PRN IV PAIN; Start 11/01/18 at 13:45; Stop 11/02/18 at 13:44; Status UNV Sodium Chloride 1,000 ml @ 100 mls/hr 1X ONCE IV Last administered on 11/01/18at 14:05; Start 11/01/18 at 13:45; Stop 11/01/18 at 23:44 Nicotine (Nicoderm Cq 14mg) 1 patch DAILY TD Last administered on 11/01/18at 15:02; Start 11/01/18 at 15:00 Active Scripts Active Lidocaine 1 Each Adh..patch 1 Each TP Q12HR PRN Please remove lidoderm patch for at least 12 hours daily. Prednisone 20 Mg Tablet 2 Tab PO DAILY Orphenadrine Citrate 100 Mg Tablet.er 1 Tab PO BID [place] 5-325 Tablet (Acetaminophen/Hydrocodone Bitart) 1 Each Tablet 1 Tab PO PRN Q6HRS PRN Lomotil Tablet (Diphenoxylate Hcl/Atropine) 1 Each Tablet 1 Tab PO QID Imitrex (Sumatriptan Succinate) 100 Mg Tablet 1 Tab PO UD Compazine (Prochlorperazine Maleate) 10 Mg Tablet 10 Mg PO TID 5 Days Zofran Odt (Ondansetron) 4 Mg Tab.rapdis 1 Tab SL Q8HRS Reported Lisinopril 20 Mg Tablet 1 Tab PO DAILY Allergies Allergies: Coded Allergies: aspirin (Verified Adverse Reaction, Severe, bleeding, 12/14/15) ibuprofen (Verified Adverse Reaction, Severe, bleeding, 12/14/15) ROS Gastrointestinal: Yes Abdominal Pain Physical Exam General: Alert, Oriented X3, Cooperative, mild distress HEENT: EOMI Lungs: Normal air movement Abdomen: Soft, Other (mild diffuse TTP) Extremities: No clubbing, No cyanosis Skin: No rashes, No breakdown Neuro: Normal speech, Sensation intact Psych/Mental Status: Mental status NL, Mood NL Vitals VITALS Vital Signs Date Time Temp Pulse Resp B/P (MAP) Pulse Ox O2 Delivery O2 Flow Rate FiO2 11/01/18 15:02 16 Room Air 11/01/18 13:45 98.1 64 169/94 (119) 96 98.1 Labs Labs Laboratory Tests Test 11/01/18 09:22 11/01/18 09:40 White Blood Count 6.7 x10^3/uL (4.0-11.0) Red Blood Count 4.29 x10^6/uL (3.50-5.40) Hemoglobin 13.3 g/dL (12.0-15.5) Hematocrit 39.3 % (36.0-47.0) Mean Corpuscular Volume 92 fL (79-100) Mean Corpuscular Hemoglobin 31 pg (25-35) Mean Corpuscular Hemoglobin Concent 34 g/dL (31-37) Red Cell Distribution Width 12.8 % (11.5-14.5) Platelet Count 186 x10^3/uL (140-400) Neutrophils (%) (Auto) 70 % (31-73) Lymphocytes (%) (Auto) 18 % (24-48) Monocytes (%) (Auto) 7 % (0-9) Eosinophils (%) (Auto) 5 % (0-3) Basophils (%) (Auto) 1 % (0-3) Neutrophils # (Auto) 4.7 x10^3uL (1.8-7.7) Lymphocytes # (Auto) 1.2 x10^3/uL (1.0-4.8) Monocytes # (Auto) 0.5 x10^3/uL (0.0-1.1) Eosinophils # (Auto) 0.3 x10^3/uL (0.0-0.7) Basophils # (Auto) 0.0 x10^3/uL (0.0-0.2) Urine Collection Type Unknown Urine Color Yellow Urine Clarity Clear Urine pH 5.5 Urine Specific [place] 1.020 Urine Protein Negative mg/dL (NEG-TRACE) Urine Glucose (UA) Negative mg/dL (NEG) Urine Ketones (Stick) Negative mg/dL (NEG) Urine Blood Small (NEG) Urine Nitrite Negative (NEG) Urine Bilirubin Negative (NEG) Urine Urobilinogen Dipstick 0.2 mg/dL (0.2 mg/dL) Urine Leukocyte Esterase Negative (NEG) Urine RBC 1-2 /HPF (0-2) Urine WBC 0 /HPF (0-4) Urine Squamous Epithelial Cells Few /LPF Urine Bacteria 0 /HPF (0-FEW) Sodium Level 139 mmol/L (136-145) Potassium Level 4.1 mmol/L (3.5-5.1) Chloride Level 106 mmol/L (98-107) Carbon Dioxide Level 25 mmol/L (21-32) Anion Gap 8 (6-14) Blood Urea Nitrogen 13 mg/dL (7-20) Creatinine 1.0 mg/dL (0.6-1.0) Estimated GFR (Cockcroft-Gault) 60.2 BUN/Creatinine Ratio 13 (6-20) Glucose Level 104 mg/dL (70-99) Calcium Level 8.8 mg/dL (8.5-10.1) Total Bilirubin 0.5 mg/dL (0.2-1.0) Aspartate Amino Transf (AST/SGOT) 35 U/L (15-37) Alanine Aminotransferase (ALT/SGPT) 56 U/L (14-59) Alkaline Phosphatase 112 U/L (46-116) Total Protein 6.8 g/dL (6.4-8.2) Albumin 3.6 g/dL (3.4-5.0) Albumin/Globulin Ratio 1.1 (1.0-1.7) Lipase 92 U/L (73-393) Urine Opiates Screen Neg (NEG) Urine Methadone Screen Neg (NEG) Urine Barbiturates Neg (NEG) Urine Phencyclidine Screen Neg (NEG) Urine Amphetamine/Methamphetamine Neg (NEG) Urine Benzodiazepines Screen Neg (NEG) Urine Cocaine Screen Neg (NEG) Urine Cannabinoids Screen Neg (NEG) Ethyl Alcohol Level < 10 mg/dL (0-10) Urine Ethyl Alcohol Neg (NEG) Laboratory Tests Test 11/01/18 09:22 11/01/18 09:40 White Blood Count 6.7 x10^3/uL (4.0-11.0) Red Blood Count 4.29 x10^6/uL (3.50-5.40) Hemoglobin 13.3 g/dL (12.0-15.5) Hematocrit 39.3 % (36.0-47.0) Mean Corpuscular Volume 92 fL (79-100) Mean Corpuscular Hemoglobin 31 pg (25-35) Mean Corpuscular Hemoglobin Concent 34 g/dL (31-37) Red Cell Distribution Width 12.8 % (11.5-14.5) Platelet Count 186 x10^3/uL (140-400) Neutrophils (%) (Auto) 70 % (31-73) Lymphocytes (%) (Auto) 18 % (24-48) Monocytes (%) (Auto) 7 % (0-9) Eosinophils (%) (Auto) 5 % (0-3) Basophils (%) (Auto) 1 % (0-3) Neutrophils # (Auto) 4.7 x10^3uL (1.8-7.7) Lymphocytes # (Auto) 1.2 x10^3/uL (1.0-4.8) Monocytes # (Auto) 0.5 x10^3/uL (0.0-1.1) Eosinophils # (Auto) 0.3 x10^3/uL (0.0-0.7) Basophils # (Auto) 0.0 x10^3/uL (0.0-0.2) Urine Collection Type Unknown Urine Color Yellow Urine Clarity Clear Urine pH 5.5 Urine Specific [place] 1.020 Urine Protein Negative mg/dL (NEG-TRACE) Urine Glucose (UA) Negative mg/dL (NEG) Urine Ketones (Stick) Negative mg/dL (NEG) Urine Blood Small (NEG) Urine Nitrite Negative (NEG) Urine Bilirubin Negative (NEG) Urine Urobilinogen Dipstick 0.2 mg/dL (0.2 mg/dL) Urine Leukocyte Esterase Negative (NEG) Urine RBC 1-2 /HPF (0-2) Urine WBC 0 /HPF (0-4) Urine Squamous Epithelial Cells Few /LPF Urine Bacteria 0 /HPF (0-FEW) Sodium Level 139 mmol/L (136-145) Potassium Level 4.1 mmol/L (3.5-5.1) Chloride Level 106 mmol/L (98-107) Carbon Dioxide Level 25 mmol/L (21-32) Anion Gap 8 (6-14) Blood Urea Nitrogen 13 mg/dL (7-20) Creatinine 1.0 mg/dL (0.6-1.0) Estimated GFR (Cockcroft-Gault) 60.2 BUN/Creatinine Ratio 13 (6-20) Glucose Level 104 mg/dL (70-99) Calcium Level 8.8 mg/dL (8.5-10.1) Total Bilirubin 0.5 mg/dL (0.2-1.0) Aspartate Amino Transf (AST/SGOT) 35 U/L (15-37) Alanine Aminotransferase (ALT/SGPT) 56 U/L (14-59) Alkaline Phosphatase 112 U/L (46-116) Total Protein 6.8 g/dL (6.4-8.2) Albumin 3.6 g/dL (3.4-5.0) Albumin/Globulin Ratio 1.1 (1.0-1.7) Lipase 92 U/L (73-393) Urine Opiates Screen Neg (NEG) Urine Methadone Screen Neg (NEG) Urine Barbiturates Neg (NEG) Urine Phencyclidine Screen Neg (NEG) Urine Amphetamine/Methamphetamine Neg (NEG) Urine Benzodiazepines Screen Neg (NEG) Urine Cocaine Screen Neg (NEG) Urine Cannabinoids Screen Neg (NEG) Ethyl Alcohol Level < 10 mg/dL (0-10) Urine Ethyl Alcohol Neg (NEG) Images Images CT with previous SB anastomosis, SB thickening, distended SB Assessment/Plan Assessment/Plan SBO will attempt conservative measures with bowel rest, IVF Thanks for consult! CHANELLE TORRES MD Nov 01, 2018 15:32
--- NOTE | 2018-11-01 15:42 | PDOC1 ---
History and Physical Date of Admission Date of Admission DATE: 11/01/18 TIME: 15:37 Identification/Chief Complaint Chief Complaint abd pain Source Source: Chart review, Patient History of Present Illness History of Present Illness Ms. Encarnacion, is a 43 yo F admit from ER with acute abd pain. She has a hx of surgical correction of SBO in 2016, here by Dr. Dent. She reports not feeling well since, and "able to feel all food go through" but weight has been stable over 3 years. Acutely worsened abd pain today, 01/07, she didn't want to come to the ER, was brought by her , she had a normal recent stool this AM CT scan showed obstruction, pt did not want NG tube placed in the ER Past Medical History Cardiovascular: HTN GI: Other Heme/Onc: Cancer, Other Psych: No pertinent hx Musculoskeletal: low back pain Rheumatologic: No pertinent hx Infectious disease: No pertinent hx Past Surgical History Past Surgical History: Appendectomy, Cholecystectomy, Hysterectomy, Other (SBR,) Family History Family History: No Significant Social History Smoke: <1 pack per day ALCOHOL: none Drugs: None Current Problem List Problem List Problems Medical Problems: (1) SBO (small bowel obstruction) Status: Acute Current Medications Current Medications Current Medications Sodium Chloride 1,000 ml @ 1,000 mls/hr 1X ONCE IV Last administered on 11/01/18at 09:47; Start 11/01/18 at 09:30; Stop 11/01/18 at 10:29; Status DC Morphine Sulfate (Morphine Sulfate) 5 mg 1X ONCE IV Last administered on 11/01/18at 09:48; Start 11/01/18 at 09:30; Stop 11/01/18 at 09:31; Status DC Ondansetron HCl (Zofran) 4 mg 1X ONCE IV Last administered on 11/01/18at 09:45; Start 11/01/18 at 09:30; Stop 11/01/18 at 09:31; Status DC Iohexol (Omnipaque 300 Mg/ml) 75 ml 1X ONCE IV Last administered on 11/01/18at 10:19; Start 11/01/18 at 10:15; Stop 11/01/18 at 10:16; Status DC Info (CONTRAST GIVEN -- Rx MONITORING) 1 each PRN DAILY PRN MC SEE COMMENTS; Start 11/01/18 at 10:15; Stop 11/03/18 at 10:14 Morphine Sulfate (Morphine Sulfate) 5 mg 1X ONCE IV Last administered on 11/01/18at 12:15; Start 11/01/18 at 12:00; Stop 11/01/18 at 12:01; Status DC Morphine Sulfate (Morphine Sulfate) 4 mg PRN Q4HRS PRN IV pain Last administered on 11/01/18at 15:02; Start 11/01/18 at 13:15 Ondansetron HCl (Zofran) 4 mg PRN Q8HRS PRN IV NAUSEA/VOMITING Last administered on 11/01/18at 15:03; Start 11/01/18 at 13:15 Ondansetron HCl (Zofran) 4 mg PRN Q8HRS PRN IV NAUSEA/VOMITING; Start 11/01/18 at 13:45; Stop 11/01/18 at 13:45; Status DC Morphine Sulfate (Morphine Sulfate) 4 mg PRN Q2HR PRN IV PAIN; Start 11/01/18 at 13:45; Stop 11/02/18 at 13:44; Status UNV Sodium Chloride 1,000 ml @ 100 mls/hr 1X ONCE IV Last administered on at 14:05; Start 11/01/18 at 13:45; Stop 11/01/18 at 23:44 Nicotine (Nicoderm Cq 14mg) 1 patch DAILY TD Last administered on 11/01/18at 15:02; Start 11/01/18 at 15:00 Active Scripts Active Lidocaine 1 Each Adh..patch 1 Each TP Q12HR PRN Please remove lidoderm patch for at least 12 hours daily. Prednisone 20 Mg Tablet 2 Tab PO DAILY Orphenadrine Citrate 100 Mg Tablet.er 1 Tab PO BID Nancy 5-325 Tablet (Acetaminophen/Hydrocodone Bitart) 1 Each Tablet 1 Tab PO PRN Q6HRS PRN Lomotil Tablet (Diphenoxylate Hcl/Atropine) 1 Each Tablet 1 Tab PO QID Imitrex (Sumatriptan Succinate) 100 Mg Tablet 1 Tab PO UD Compazine (Prochlorperazine Maleate) 10 Mg Tablet 10 Mg PO TID 5 Days Zofran Odt (Ondansetron) 4 Mg Tab.rapdis 1 Tab SL Q8HRS Reported Lisinopril 20 Mg Tablet 1 Tab PO DAILY Allergies Allergies: Coded Allergies: aspirin (Verified Adverse Reaction, Severe, bleeding, 12/14/15) ibuprofen (Verified Adverse Reaction, Severe, bleeding, 12/14/15) ROS General: YES: Malaise; No: Chills, Night Sweats, Fatigue, Appetite, Other PSYCHOLOGICAL ROS: No: Anxiety, Behavioral Disorder, Concentration difficultie, Decreased libido, Depression, Disorientation, Hallucinations, Hostility, Irritablity, Memory difficulties, Mood Swings, Obsessive thoughts, Physical abuse, Sexual abuse, Sleep disturbances, Suicidal ideation, Other Eyes: No Blurry vision, No Decreased vision, No Double vision, No Dry eyes, No Excessive tearing, No Eye Pain, No Itchy Eyes, No Loss of vision, No Photophobia, No Scotomata, No Uses contacts, No Uses glasses, No Other HEENT: No: Heacaches, Visual Changes, Hearing change, Nasal congestion, Nasal discharge, Oral lesions, Sinus pain, Sore Throat, Epistaxis, Sneezing, Snoring, Tinnitus, Vertigo, Vocal changes, Other Respiratory: No: Cough, Hemoptysis, Orthopnea, Pleuritic Pain, Shortness of breath, SOB with excertion, Sputum Changes, Stridor, Tachypnea, Wheezing, Other Cardiovascular: No Chest Pain, No Palpitations, No Orthopnea, No Paroxysmal Noc. Dyspnea, No Edema, No Lt Headedness, No Other Gastrointestinal: Yes Nausea, Yes Abdominal Pain; No Vomiting, No Diarrhea, No Constipation, No Melena, No Hematochezia, No Other Genitourinary: No Dysuria, No Frequency, No Incontinence, No Hematuria, No Retention, No Discharge, No Urgency, No Pain, No Flank Pain, No Other, No , No , No , No , No , No , No Musculoskeletal: No Gait Disturbance, No Joint Pain, No Joint Stiffness, No Joint Swelling, No Muscle Pain, No Muscular Weakness, No Pain In:, No Swelling In:, No Other Neurological: No Behavorial Changes, No Bowel/Bladder ControlChng, No Confusion, No Dizziness, No Gait Disturbance, No Headaches, No Impaired Coord/balance, No Memory Loss, No Numbness/Tingling, No Seizures, No Speech Problems, No Tremors, No Visual Changes, No Weakness, No Other Skin: No Dry Skin, No Eczema, No Hair Changes, No Lumps, No Mole Changes, No Mottling, No Nail Changes, No Pruritus, No Rash, No Skin Lesion Changes, No Other, No Acne Physical Exam General: Alert, Cooperative, moderate distress HEENT: Atraumatic Lungs: Clear to auscultation Heart: S1S2, RRR, no murmurs Abdomen: Soft (tender, diffuse, high pitch sound), Other Extremities: No clubbing Skin: No breakdown Neuro: Normal gait, Normal speech, Sensation intact Psych/Mental Status: Mental status NL, Mood NL Vitals Vitals Vital Signs Date Time Temp Pulse Resp B/P (MAP) Pulse Ox O2 Delivery O2 Flow Rate FiO2 11/01/18 15:32 16 Room Air 11/01/18 13:45 98.1 64 169/94 (119) 96 98.1 Labs Labs Laboratory Tests Test 11/01/18 09:22 11/01/18 09:40 White Blood Count 6.7 x10^3/uL (4.0-11.0) Red Blood Count 4.29 x10^6/uL (3.50-5.40) Hemoglobin 13.3 g/dL (12.0-15.5) Hematocrit 39.3 % (36.0-47.0) Mean Corpuscular Volume 92 fL (79-100) Mean Corpuscular Hemoglobin 31 pg (25-35) Mean Corpuscular Hemoglobin Concent 34 g/dL (31-37) Red Cell Distribution Width 12.8 % (11.5-14.5) Platelet Count 186 x10^3/uL (140-400) Neutrophils (%) (Auto) 70 % (31-73) Lymphocytes (%) (Auto) 18 % (24-48) Monocytes (%) (Auto) 7 % (0-9) Eosinophils (%) (Auto) 5 % (0-3) Basophils (%) (Auto) 1 % (0-3) Neutrophils # (Auto) 4.7 x10^3uL (1.8-7.7) Lymphocytes # (Auto) 1.2 x10^3/uL (1.0-4.8) Monocytes # (Auto) 0.5 x10^3/uL (0.0-1.1) Eosinophils # (Auto) 0.3 x10^3/uL (0.0-0.7) Basophils # (Auto) 0.0 x10^3/uL (0.0-0.2) Urine Collection Type Unknown Urine Color Yellow Urine Clarity Clear Urine pH 5.5 Urine Specific [place] 1.020 Urine Protein Negative mg/dL (NEG-TRACE) Urine Glucose (UA) Negative mg/dL (NEG) Urine Ketones (Stick) Negative mg/dL (NEG) Urine Blood Small (NEG) Urine Nitrite Negative (NEG) Urine Bilirubin Negative (NEG) Urine Urobilinogen Dipstick 0.2 mg/dL (0.2 mg/dL) Urine Leukocyte Esterase Negative (NEG) Urine RBC 1-2 /HPF (0-2) Urine WBC 0 /HPF (0-4) Urine Squamous Epithelial Cells Few /LPF Urine Bacteria 0 /HPF (0-FEW) Sodium Level 139 mmol/L (136-145) Potassium Level 4.1 mmol/L (3.5-5.1) Chloride Level 106 mmol/L (98-107) Carbon Dioxide Level 25 mmol/L (21-32) Anion Gap 8 (6-14) Blood Urea Nitrogen 13 mg/dL (7-20) Creatinine 1.0 mg/dL (0.6-1.0) Estimated GFR (Cockcroft-Gault) 60.2 BUN/Creatinine Ratio 13 (6-20) Glucose Level 104 mg/dL (70-99) Calcium Level 8.8 mg/dL (8.5-10.1) Total Bilirubin 0.5 mg/dL (0.2-1.0) Aspartate Amino Transf (AST/SGOT) 35 U/L (15-37) Alanine Aminotransferase (ALT/SGPT) 56 U/L (14-59) Alkaline Phosphatase 112 U/L (46-116) Total Protein 6.8 g/dL (6.4-8.2) Albumin 3.6 g/dL (3.4-5.0) Albumin/Globulin Ratio 1.1 (1.0-1.7) Lipase 92 U/L (73-393) Urine Opiates Screen Neg (NEG) Urine Methadone Screen Neg (NEG) Urine Barbiturates Neg (NEG) Urine Phencyclidine Screen Neg (NEG) Urine Amphetamine/Methamphetamine Neg (NEG) Urine Benzodiazepines Screen Neg (NEG) Urine Cocaine Screen Neg (NEG) Urine Cannabinoids Screen Neg (NEG) Ethyl Alcohol Level < 10 mg/dL (0-10) Urine Ethyl Alcohol Neg (NEG) Laboratory Tests Test 11/01/18 09:22 11/01/18 09:40 White Blood Count 6.7 x10^3/uL (4.0-11.0) Red Blood Count 4.29 x10^6/uL (3.50-5.40) Hemoglobin 13.3 g/dL (12.0-15.5) Hematocrit 39.3 % (36.0-47.0) Mean Corpuscular Volume 92 fL (79-100) Mean Corpuscular Hemoglobin 31 pg (25-35) Mean Corpuscular Hemoglobin Concent 34 g/dL (31-37) Red Cell Distribution Width 12.8 % (11.5-14.5) Platelet Count 186 x10^3/uL (140-400) Neutrophils (%) (Auto) 70 % (31-73) Lymphocytes (%) (Auto) 18 % (24-48) Monocytes (%) (Auto) 7 % (0-9) Eosinophils (%) (Auto) 5 % (0-3) Basophils (%) (Auto) 1 % (0-3) Neutrophils # (Auto) 4.7 x10^3uL (1.8-7.7) Lymphocytes # (Auto) 1.2 x10^3/uL (1.0-4.8) Monocytes # (Auto) 0.5 x10^3/uL (0.0-1.1) Eosinophils # (Auto) 0.3 x10^3/uL (0.0-0.7) Basophils # (Auto) 0.0 x10^3/uL (0.0-0.2) Urine Collection Type Unknown Urine Color Yellow Urine Clarity Clear Urine pH 5.5 Urine Specific [place] 1.020 Urine Protein Negative mg/dL (NEG-TRACE) Urine Glucose (UA) Negative mg/dL (NEG) Urine Ketones (Stick) Negative mg/dL (NEG) Urine Blood Small (NEG) Urine Nitrite Negative (NEG) Urine Bilirubin Negative (NEG) Urine Urobilinogen Dipstick 0.2 mg/dL (0.2 mg/dL) Urine Leukocyte Esterase Negative (NEG) Urine RBC 1-2 /HPF (0-2) Urine WBC 0 /HPF (0-4) Urine Squamous Epithelial Cells Few /LPF Urine Bacteria 0 /HPF (0-FEW) Sodium Level 139 mmol/L (136-145) Potassium Level 4.1 mmol/L (3.5-5.1) Chloride Level 106 mmol/L (98-107) Carbon Dioxide Level 25 mmol/L (21-32) Anion Gap 8 (6-14) Blood Urea Nitrogen 13 mg/dL (7-20) Creatinine 1.0 mg/dL (0.6-1.0) Estimated GFR (Cockcroft-Gault) 60.2 BUN/Creatinine Ratio 13 (6-20) Glucose Level 104 mg/dL (70-99) Calcium Level 8.8 mg/dL (8.5-10.1) Total Bilirubin 0.5 mg/dL (0.2-1.0) Aspartate Amino Transf (AST/SGOT) 35 U/L (15-37) Alanine Aminotransferase (ALT/SGPT) 56 U/L (14-59) Alkaline Phosphatase 112 U/L (46-116) Total Protein 6.8 g/dL (6.4-8.2) Albumin 3.6 g/dL (3.4-5.0) Albumin/Globulin Ratio 1.1 (1.0-1.7) Lipase 92 U/L (73-393) Urine Opiates Screen Neg (NEG) Urine Methadone Screen Neg (NEG) Urine Barbiturates Neg (NEG) Urine Phencyclidine Screen Neg (NEG) Urine Amphetamine/Methamphetamine Neg (NEG) Urine Benzodiazepines Screen Neg (NEG) Urine Cocaine Screen Neg (NEG) Urine Cannabinoids Screen Neg (NEG) Ethyl Alcohol Level < 10 mg/dL (0-10) Urine Ethyl Alcohol Neg (NEG) VTE Prophylaxis Ordered VTE Prophylaxis Devices: Yes VTE Pharmacological Prophylaxi: Yes Assessment/Plan Assessment/Plan acute abd pain small bowel obstruction, admit, NPO, IV fluid, NG tube ordered in ER, patient refused, I discussed with her and at length, benefits of tube and risks, prior SBO surg tobacco use disorder, obese, BMI 31 ELVA LAWTON MD Nov 01, 2018 15:42
[2018-11-01] MEDS: IV DEXTROSE 5 %-0.45 % NACL 1,000 ML IV SCH (16:00)
[2018-11-01 19:11] VITALS: BP 163/86
[2018-11-01 23:00] VITALS: BP 155/85
[2018-11-02] VITALS (7 sets, daily range): BP systolic 141–185; BP diastolic 70–95
[2018-11-02] MEDS: IV DEXTROSE 5 %-0.45 % NACL 1,000 ML IV SCH ×3 (01:17→23:31)
[2018-11-02] MEDS: MORPHINE SULFATE 4 MG/ML VIAL. IV PRN ×2 (04:16→12:36)
[2018-11-02] MEDS: ONDANSETRON PF 4 MG/2 ML VIAL. IV PRN (04:17)
[2018-11-02 04:35] LABS: BASO % 0 % (0-3); EOS # 0.2 x10^3/uL (0.0-0.7); EOS % 3 % (0-3); HEMATOCRIT 33.8 % (36.0-47.0); HEMOGLOBIN 11.5 g/dL (12.0-15.5); LYMPH # 1.4 x10^3/uL (1.0-4.8); LYMPH % 20 % (24-48); MEAN CORPUSCULAR HEMOGLOBIN 31 pg (25-35); MEAN CORPUSCULAR HGB CONC 34 g/dL (31-37); MEAN CORPUSCULAR VOLUME 92 fL (79-100); MONO # 0.6 x10^3/uL (0.0-1.1); MONO % 8 % (0-9); NEUT # 4.9 x10^3uL (1.8-7.7); NEUT % 69 % (31-73); PLATELET COUNT 152 x10^3/uL (140-400); RED BLOOD COUNT 3.66 x10^6/uL (3.50-5.40); RED CELL DISTRIBUTION WIDTH 13.1 % (11.5-14.5); WHITE BLOOD COUNT 7.2 x10^3/uL (4.0-11.0)
[2018-11-02 04:56] LABS: CALCIUM 8.1 mg/dL (8.5-10.1); CREATININE 0.7 mg/dL (0.6-1.0); GFR 90.9; POTASSIUM 3.5 mmol/L (3.5-5.1)
[2018-11-02] MEDS: NICOTINE 14MG PATCH. TD SCH (07:38)
--- NOTE | 2018-11-02 08:39 | PDOC ---
BRAULIO BAKER [employer] 11/02/18 0839: SURGICAL PROGRESS NOTE Subjective pain about 6 nausea, no emesis some flatus Vital Signs Vital Signs Date Time Temp Pulse Resp B/P (MAP) Pulse Ox O2 Delivery O2 Flow Rate FiO2 11/02/18 07:27 Room Air 11/02/18 07:00 98.2 65 160/88 (112) 94 98.2 11/01/18 15:32 16 I&O Intake and Output 11/02/18 07:00 Intake Total 1000 ml Output Total 0 ml Balance 1000 ml Intake Oral 0 ml IV Total 1000 ml Output Urine Total 0 ml # Voids 1 General: Alert, Oriented X3, Cooperative, No acute distress Abdomen: Soft, Other (ttp lower abdomen) Labs Laboratory Tests Test 11/01/18 09:22 11/01/18 09:40 11/02/18 03:50 White Blood Count 6.7 x10^3/uL (4.0-11.0) 7.2 x10^3/uL (4.0-11.0) Red Blood Count 4.29 x10^6/uL (3.50-5.40) 3.66 x10^6/uL (3.50-5.40) Hemoglobin 13.3 g/dL (12.0-15.5) 11.5 g/dL (12.0-15.5) Hematocrit 39.3 % (36.0-47.0) 33.8 % (36.0-47.0) Mean Corpuscular Volume 92 fL (79-100) 92 fL (79-100) Mean Corpuscular Hemoglobin 31 pg (25-35) 31 pg (25-35) Mean Corpuscular Hemoglobin Concent 34 g/dL (31-37) 34 g/dL (31-37) Red Cell Distribution Width 12.8 % (11.5-14.5) 13.1 % (11.5-14.5) Platelet Count 186 x10^3/uL (140-400) 152 x10^3/uL (140-400) Neutrophils (%) (Auto) 70 % (31-73) 69 % (31-73) Lymphocytes (%) (Auto) 18 % (24-48) 20 % (24-48) Monocytes (%) (Auto) 7 % (0-9) 8 % (0-9) Eosinophils (%) (Auto) 5 % (0-3) 3 % (0-3) Basophils (%) (Auto) 1 % (0-3) 0 % (0-3) Neutrophils # (Auto) 4.7 x10^3uL (1.8-7.7) 4.9 x10^3uL (1.8-7.7) Lymphocytes # (Auto) 1.2 x10^3/uL (1.0-4.8) 1.4 x10^3/uL (1.0-4.8) Monocytes # (Auto) 0.5 x10^3/uL (0.0-1.1) 0.6 x10^3/uL (0.0-1.1) Eosinophils # (Auto) 0.3 x10^3/uL (0.0-0.7) 0.2 x10^3/uL (0.0-0.7) Basophils # (Auto) 0.0 x10^3/uL (0.0-0.2) 0.0 x10^3/uL (0.0-0.2) Urine Collection Type Unknown Urine Color Yellow Urine Clarity Clear Urine pH 5.5 Urine Specific [place] 1.020 Urine Protein Negative mg/dL (NEG-TRACE) Urine Glucose (UA) Negative mg/dL (NEG) Urine Ketones (Stick) Negative mg/dL (NEG) Urine Blood Small (NEG) Urine Nitrite Negative (NEG) Urine Bilirubin Negative (NEG) Urine Urobilinogen Dipstick 0.2 mg/dL (0.2 mg/dL) Urine Leukocyte Esterase Negative (NEG) Urine RBC 1-2 /HPF (0-2) Urine WBC 0 /HPF (0-4) Urine Squamous Epithelial Cells Few /LPF Urine Bacteria 0 /HPF (0-FEW) Sodium Level 139 mmol/L (136-145) 138 mmol/L (136-145) Potassium Level 4.1 mmol/L (3.5-5.1) 3.5 mmol/L (3.5-5.1) Chloride Level 106 mmol/L (98-107) 104 mmol/L (98-107) Carbon Dioxide Level 25 mmol/L (21-32) 27 mmol/L (21-32) Anion Gap 8 (6-14) 7 (6-14) Blood Urea Nitrogen 13 mg/dL (7-20) 10 mg/dL (7-20) Creatinine 1.0 mg/dL (0.6-1.0) 0.7 mg/dL (0.6-1.0) Estimated GFR (Cockcroft-Gault) 60.2 90.9 BUN/Creatinine Ratio 13 (6-20) Glucose Level 104 mg/dL (70-99) 106 mg/dL (70-99) Calcium Level 8.8 mg/dL (8.5-10.1) 8.1 mg/dL (8.5-10.1) Total Bilirubin 0.5 mg/dL (0.2-1.0) Aspartate Amino Transf (AST/SGOT) 35 U/L (15-37) Alanine Aminotransferase (ALT/SGPT) 56 U/L (14-59) Alkaline Phosphatase 112 U/L (46-116) Total Protein 6.8 g/dL (6.4-8.2) Albumin 3.6 g/dL (3.4-5.0) Albumin/Globulin Ratio 1.1 (1.0-1.7) Lipase 92 U/L (73-393) Urine Opiates Screen Neg (NEG) Urine Methadone Screen Neg (NEG) Urine Barbiturates Neg (NEG) Urine Phencyclidine Screen Neg (NEG) Urine Amphetamine/Methamphetamine Neg (NEG) Urine Benzodiazepines Screen Neg (NEG) Urine Cocaine Screen Neg (NEG) Urine Cannabinoids Screen Neg (NEG) Ethyl Alcohol Level < 10 mg/dL (0-10) Urine Ethyl Alcohol Neg (NEG) Laboratory Tests Test 11/01/18 09:22 11/01/18 09:40 11/02/18 03:50 White Blood Count 6.7 x10^3/uL (4.0-11.0) 7.2 x10^3/uL (4.0-11.0) Red Blood Count 4.29 x10^6/uL (3.50-5.40) 3.66 x10^6/uL (3.50-5.40) Hemoglobin 13.3 g/dL (12.0-15.5) 11.5 g/dL (12.0-15.5) Hematocrit 39.3 % (36.0-47.0) 33.8 % (36.0-47.0) Mean Corpuscular Volume 92 fL (79-100) 92 fL (79-100) Mean Corpuscular Hemoglobin 31 pg (25-35) 31 pg (25-35) Mean Corpuscular Hemoglobin Concent 34 g/dL (31-37) 34 g/dL (31-37) Red Cell Distribution Width 12.8 % (11.5-14.5) 13.1 % (11.5-14.5) Platelet Count 186 x10^3/uL (140-400) 152 x10^3/uL (140-400) Neutrophils (%) (Auto) 70 % (31-73) 69 % (31-73) Lymphocytes (%) (Auto) 18 % (24-48) 20 % (24-48) Monocytes (%) (Auto) 7 % (0-9) 8 % (0-9) Eosinophils (%) (Auto) 5 % (0-3) 3 % (0-3) Basophils (%) (Auto) 1 % (0-3) 0 % (0-3) Neutrophils # (Auto) 4.7 x10^3uL (1.8-7.7) 4.9 x10^3uL (1.8-7.7) Lymphocytes # (Auto) 1.2 x10^3/uL (1.0-4.8) 1.4 x10^3/uL (1.0-4.8) Monocytes # (Auto) 0.5 x10^3/uL (0.0-1.1) 0.6 x10^3/uL (0.0-1.1) Eosinophils # (Auto) 0.3 x10^3/uL (0.0-0.7) 0.2 x10^3/uL (0.0-0.7) Basophils # (Auto) 0.0 x10^3/uL (0.0-0.2) 0.0 x10^3/uL (0.0-0.2) Urine Collection Type Unknown Urine Color Yellow Urine Clarity Clear Urine pH 5.5 Urine Specific [place] 1.020 Urine Protein Negative mg/dL (NEG-TRACE) Urine Glucose (UA) Negative mg/dL (NEG) Urine Ketones (Stick) Negative mg/dL (NEG) Urine Blood Small (NEG) Urine Nitrite Negative (NEG) Urine Bilirubin Negative (NEG) Urine Urobilinogen Dipstick 0.2 mg/dL (0.2 mg/dL) Urine Leukocyte Esterase Negative (NEG) Urine RBC 1-2 /HPF (0-2) Urine WBC 0 /HPF (0-4) Urine Squamous Epithelial Cells Few /LPF Urine Bacteria 0 /HPF (0-FEW) Sodium Level 139 mmol/L (136-145) 138 mmol/L (136-145) Potassium Level 4.1 mmol/L (3.5-5.1) 3.5 mmol/L (3.5-5.1) Chloride Level 106 mmol/L (98-107) 104 mmol/L (98-107) Carbon Dioxide Level 25 mmol/L (21-32) 27 mmol/L (21-32) Anion Gap 8 (6-14) 7 (6-14) Blood Urea Nitrogen 13 mg/dL (7-20) 10 mg/dL (7-20) Creatinine 1.0 mg/dL (0.6-1.0) 0.7 mg/dL (0.6-1.0) Estimated GFR (Cockcroft-Gault) 60.2 90.9 BUN/Creatinine Ratio 13 (6-20) Glucose Level 104 mg/dL (70-99) 106 mg/dL (70-99) Calcium Level 8.8 mg/dL (8.5-10.1) 8.1 mg/dL (8.5-10.1) Total Bilirubin 0.5 mg/dL (0.2-1.0) Aspartate Amino Transf (AST/SGOT) 35 U/L (15-37) Alanine Aminotransferase (ALT/SGPT) 56 U/L (14-59) Alkaline Phosphatase 112 U/L (46-116) Total Protein 6.8 g/dL (6.4-8.2) Albumin 3.6 g/dL (3.4-5.0) Albumin/Globulin Ratio 1.1 (1.0-1.7) Lipase 92 U/L (73-393) Urine Opiates Screen Neg (NEG) Urine Methadone Screen Neg (NEG) Urine Barbiturates Neg (NEG) Urine Phencyclidine Screen Neg (NEG) Urine Amphetamine/Methamphetamine Neg (NEG) Urine Benzodiazepines Screen Neg (NEG) Urine Cocaine Screen Neg (NEG) Urine Cannabinoids Screen Neg (NEG) Ethyl Alcohol Level < 10 mg/dL (0-10) Urine Ethyl Alcohol Neg (NEG) Problem List Problems Medical Problems: (1) SBO (small bowel obstruction) Status: Acute Assessment/Plan sbo conservative measures check xrays CHANELLE TORRES MD 11/02/18 1020: SURGICAL PROGRESS NOTE Assessment/Plan Pt seen and examined. Agree with MsArmani Baker's note Pt with c/o cont nausea, some flatus, no stool and abd pain at a 6 abd soft, mild diffuse TTP would favor proceeding with NGT placement and SBFT in AM. She is agreeable. BRAULIO BAKER [employer] Nov 02, 2018 08:39 CHANELLE TORRES MD Nov 02, 2018 10:20
[2018-11-02] MEDS: FAMOTIDINE 20 MG/2 ML VIAL IVP SCH ×2 (08:55→20:58)
[2018-11-02] MEDS ORDERED: ONDANSETRON PF 4 MG/2 ML VIAL. IV PRN (09:00)
--- NOTE | 2018-11-02 10:32 | PDOC ---
PROGRESS NOTES Chief Complaint Chief Complaint sbo - conservative mx, 5th episode History hysterectomy, appendectomy, cholecystectomy Accelerated hypertension Tobaccosim Overweight BMI 32 History of Present Illness History of Present Illness Having abdominal pain, laying still because of pain On morphine 4 mg every 4 GS note reviewed, conservative management, for interval films Plan: add fentanyl 50 IV every 2 when necessary for pain control Add PPI IV Vasotec when necessary for high blood pressure-on shortage Unsure what we can push here, she is borderline bradycardic 60s Keep nothing by mouth Follow-up interval abdominal films Vitals Vitals Vital Signs Date Time Temp Pulse Resp B/P (MAP) Pulse Ox O2 Delivery O2 Flow Rate FiO2 11/02/18 07:27 Room Air 11/02/18 07:00 98.2 65 160/88 (112) 94 98.2 11/01/18 15:32 16 Physical Exam General: Alert, Oriented X3, Cooperative, No acute distress Lungs: Clear Abdomen: Soft, Other (ttp lower abdomen) Extremities: No clubbing Skin: No breakdown Labs LABS Laboratory Tests Test 11/02/18 03:50 White Blood Count 7.2 x10^3/uL (4.0-11.0) Red Blood Count 3.66 x10^6/uL (3.50-5.40) Hemoglobin 11.5 g/dL (12.0-15.5) Hematocrit 33.8 % (36.0-47.0) Mean Corpuscular Volume 92 fL (79-100) Mean Corpuscular Hemoglobin 31 pg (25-35) Mean Corpuscular Hemoglobin Concent 34 g/dL (31-37) Red Cell Distribution Width 13.1 % (11.5-14.5) Platelet Count 152 x10^3/uL (140-400) Neutrophils (%) (Auto) 69 % (31-73) Lymphocytes (%) (Auto) 20 % (24-48) Monocytes (%) (Auto) 8 % (0-9) Eosinophils (%) (Auto) 3 % (0-3) Basophils (%) (Auto) 0 % (0-3) Neutrophils # (Auto) 4.9 x10^3uL (1.8-7.7) Lymphocytes # (Auto) 1.4 x10^3/uL (1.0-4.8) Monocytes # (Auto) 0.6 x10^3/uL (0.0-1.1) Eosinophils # (Auto) 0.2 x10^3/uL (0.0-0.7) Basophils # (Auto) 0.0 x10^3/uL (0.0-0.2) Sodium Level 138 mmol/L (136-145) Potassium Level 3.5 mmol/L (3.5-5.1) Chloride Level 104 mmol/L (98-107) Carbon Dioxide Level 27 mmol/L (21-32) Anion Gap 7 (6-14) Blood Urea Nitrogen 10 mg/dL (7-20) Creatinine 0.7 mg/dL (0.6-1.0) Estimated GFR (Cockcroft-Gault) 90.9 Glucose Level 106 mg/dL (70-99) Calcium Level 8.1 mg/dL (8.5-10.1) Review of Systems Review of Systems Nauseated, abdominal pain, the rest of ROS 14 point negative Assessment and Plan Assessmemt and Plan Problems Medical Problems: (1) SBO (small bowel obstruction) Status: Acute Comment Review of Relevant I have reviewed the following items aba (where applicable) has been applied. Labs Laboratory Tests Test 11/01/18 09:22 11/01/18 09:40 11/02/18 03:50 White Blood Count 6.7 x10^3/uL (4.0-11.0) 7.2 x10^3/uL (4.0-11.0) Red Blood Count 4.29 x10^6/uL (3.50-5.40) 3.66 x10^6/uL (3.50-5.40) Hemoglobin 13.3 g/dL (12.0-15.5) 11.5 g/dL (12.0-15.5) Hematocrit 39.3 % (36.0-47.0) 33.8 % (36.0-47.0) Mean Corpuscular Volume 92 fL (79-100) 92 fL (79-100) Mean Corpuscular Hemoglobin 31 pg (25-35) 31 pg (25-35) Mean Corpuscular Hemoglobin Concent 34 g/dL (31-37) 34 g/dL (31-37) Red Cell Distribution Width 12.8 % (11.5-14.5) 13.1 % (11.5-14.5) Platelet Count 186 x10^3/uL (140-400) 152 x10^3/uL (140-400) Neutrophils (%) (Auto) 70 % (31-73) 69 % (31-73) Lymphocytes (%) (Auto) 18 % (24-48) 20 % (24-48) Monocytes (%) (Auto) 7 % (0-9) 8 % (0-9) Eosinophils (%) (Auto) 5 % (0-3) 3 % (0-3) Basophils (%) (Auto) 1 % (0-3) 0 % (0-3) Neutrophils # (Auto) 4.7 x10^3uL (1.8-7.7) 4.9 x10^3uL (1.8-7.7) Lymphocytes # (Auto) 1.2 x10^3/uL (1.0-4.8) 1.4 x10^3/uL (1.0-4.8) Monocytes # (Auto) 0.5 x10^3/uL (0.0-1.1) 0.6 x10^3/uL (0.0-1.1) Eosinophils # (Auto) 0.3 x10^3/uL (0.0-0.7) 0.2 x10^3/uL (0.0-0.7) Basophils # (Auto) 0.0 x10^3/uL (0.0-0.2) 0.0 x10^3/uL (0.0-0.2) Urine Collection Type Unknown Urine Color Yellow Urine Clarity Clear Urine pH 5.5 Urine Specific [place] 1.020 Urine Protein Negative mg/dL (NEG-TRACE) Urine Glucose (UA) Negative mg/dL (NEG) Urine Ketones (Stick) Negative mg/dL (NEG) Urine Blood Small (NEG) Urine Nitrite Negative (NEG) Urine Bilirubin Negative (NEG) Urine Urobilinogen Dipstick 0.2 mg/dL (0.2 mg/dL) Urine Leukocyte Esterase Negative (NEG) Urine RBC 1-2 /HPF (0-2) Urine WBC 0 /HPF (0-4) Urine Squamous Epithelial Cells Few /LPF Urine Bacteria 0 /HPF (0-FEW) Sodium Level 139 mmol/L (136-145) 138 mmol/L (136-145) Potassium Level 4.1 mmol/L (3.5-5.1) 3.5 mmol/L (3.5-5.1) Chloride Level 106 mmol/L (98-107) 104 mmol/L (98-107) Carbon Dioxide Level 25 mmol/L (21-32) 27 mmol/L (21-32) Anion Gap 8 (6-14) 7 (6-14) Blood Urea Nitrogen 13 mg/dL (7-20) 10 mg/dL (7-20) Creatinine 1.0 mg/dL (0.6-1.0) 0.7 mg/dL (0.6-1.0) Estimated GFR (Cockcroft-Gault) 60.2 90.9 BUN/Creatinine Ratio 13 (6-20) Glucose Level 104 mg/dL (70-99) 106 mg/dL (70-99) Calcium Level 8.8 mg/dL (8.5-10.1) 8.1 mg/dL (8.5-10.1) Total Bilirubin 0.5 mg/dL (0.2-1.0) Aspartate Amino Transf (AST/SGOT) 35 U/L (15-37) Alanine Aminotransferase (ALT/SGPT) 56 U/L (14-59) Alkaline Phosphatase 112 U/L (46-116) Total Protein 6.8 g/dL (6.4-8.2) Albumin 3.6 g/dL (3.4-5.0) Albumin/Globulin Ratio 1.1 (1.0-1.7) Lipase 92 U/L (73-393) Urine Opiates Screen Neg (NEG) Urine Methadone Screen Neg (NEG) Urine Barbiturates Neg (NEG) Urine Phencyclidine Screen Neg (NEG) Urine Amphetamine/Methamphetamine Neg (NEG) Urine Benzodiazepines Screen Neg (NEG) Urine Cocaine Screen Neg (NEG) Urine Cannabinoids Screen Neg (NEG) Ethyl Alcohol Level < 10 mg/dL (0-10) Urine Ethyl Alcohol Neg (NEG) Laboratory Tests Test 11/02/18 03:50 White Blood Count 7.2 x10^3/uL (4.0-11.0) Red Blood Count 3.66 x10^6/uL (3.50-5.40) Hemoglobin 11.5 g/dL (12.0-15.5) Hematocrit 33.8 % (36.0-47.0) Mean Corpuscular Volume 92 fL (79-100) Mean Corpuscular Hemoglobin 31 pg (25-35) Mean Corpuscular Hemoglobin Concent 34 g/dL (31-37) Red Cell Distribution Width 13.1 % (11.5-14.5) Platelet Count 152 x10^3/uL (140-400) Neutrophils (%) (Auto) 69 % (31-73) Lymphocytes (%) (Auto) 20 % (24-48) Monocytes (%) (Auto) 8 % (0-9) Eosinophils (%) (Auto) 3 % (0-3) Basophils (%) (Auto) 0 % (0-3) Neutrophils # (Auto) 4.9 x10^3uL (1.8-7.7) Lymphocytes # (Auto) 1.4 x10^3/uL (1.0-4.8) Monocytes # (Auto) 0.6 x10^3/uL (0.0-1.1) Eosinophils # (Auto) 0.2 x10^3/uL (0.0-0.7) Basophils # (Auto) 0.0 x10^3/uL (0.0-0.2) Sodium Level 138 mmol/L (136-145) Potassium Level 3.5 mmol/L (3.5-5.1) Chloride Level 104 mmol/L (98-107) Carbon Dioxide Level 27 mmol/L (21-32) Anion Gap 7 (6-14) Blood Urea Nitrogen 10 mg/dL (7-20) Creatinine 0.7 mg/dL (0.6-1.0) Estimated GFR (Cockcroft-Gault) 90.9 Glucose Level 106 mg/dL (70-99) Calcium Level 8.1 mg/dL (8.5-10.1) Medications Current Medications Sodium Chloride 1,000 ml @ 1,000 mls/hr 1X ONCE IV Last administered on 11/01/18at 09:47; Start 11/01/18 at 09:30; Stop 11/01/18 at 10:29; Status DC Morphine Sulfate (Morphine Sulfate) 5 mg 1X ONCE IV Last administered on 11/01/18at 09:48; Start 11/01/18 at 09:30; Stop 11/01/18 at 09:31; Status DC Ondansetron HCl (Zofran) 4 mg 1X ONCE IV Last administered on 11/01/18at 09:45; Start 11/01/18 at 09:30; Stop 11/01/18 at 09:31; Status DC Iohexol (Omnipaque 300 Mg/ml) 75 ml 1X ONCE IV Last administered on 11/01/18at 10:19; Start 11/01/18 at 10:15; Stop 11/01/18 at 10:16; Status DC Info (CONTRAST GIVEN -- Rx MONITORING) 1 each PRN DAILY PRN MC SEE COMMENTS; Start 11/01/18 at 10:15; Stop 11/03/18 at 10:14 Morphine Sulfate (Morphine Sulfate) 5 mg 1X ONCE IV Last administered on 11/01/18at 12:15; Start 11/01/18 at 12:00; Stop 11/01/18 at 12:01; Status DC Morphine Sulfate (Morphine Sulfate) 4 mg PRN Q4HRS PRN IV pain Last administered on 11/02/18at 04:16; Start 11/01/18 at 13:15 Ondansetron HCl (Zofran) 4 mg PRN Q8HRS PRN IV NAUSEA/VOMITING Last administered on 11/02/18at 04:17; Start 11/01/18 at 13:15; Stop 11/02/18 at 08:46; Status DC Ondansetron HCl (Zofran) 4 mg PRN Q8HRS PRN IV NAUSEA/VOMITING; Start 11/01/18 at 13:45; Stop 11/01/18 at 13:45; Status DC Morphine Sulfate (Morphine Sulfate) 4 mg PRN Q2HR PRN IV PAIN; Start 11/01/18 at 13:45; Stop 11/02/18 at 13:44; Status UNV Sodium Chloride 1,000 ml @ 100 mls/hr 1X ONCE IV Last administered on 11/01/18at 14:05; Start 11/01/18 at 13:45; Stop 11/01/18 at 23:44; Status DC Nicotine (Nicoderm Cq 14mg) 1 patch DAILY TD Last administered on 11/02/18at 07:38; Start 11/01/18 at 15:00 Dextrose/Sodium Chloride 1,000 ml @ 100 mls/hr Q10H IV Last administered on 11/02/18at 01:17; Start 11/01/18 at 15:45 Ondansetron HCl (Zofran) 4 mg PRN Q6HRS PRN IV NAUSEA/VOMITING; Start 11/02/18 at 09:00 Famotidine (Pepcid Vial) 20 mg BID IVP Last administered on 11/02/18at 08:55; Start 11/02/18 at 09:00 Active Scripts Active Lidocaine 1 Each Adh..patch 1 Each TP Q12HR PRN Please remove lidoderm patch for at least 12 hours daily. Prednisone 20 Mg Tablet 2 Tab PO DAILY Orphenadrine Citrate 100 Mg Tablet.er 1 Tab PO BID [place] 5-325 Tablet (Acetaminophen/Hydrocodone Bitart) 1 Each Tablet 1 Tab PO PRN Q6HRS PRN Lomotil Tablet (Diphenoxylate Hcl/Atropine) 1 Each Tablet 1 Tab PO QID Imitrex (Sumatriptan Succinate) 100 Mg Tablet 1 Tab PO UD Compazine (Prochlorperazine Maleate) 10 Mg Tablet 10 Mg PO TID 5 Days Zofran Odt (Ondansetron) 4 Mg Tab.rapdis 1 Tab SL Q8HRS Reported Lisinopril 20 Mg Tablet 1 Tab PO DAILY Vitals/I & O Vital Sign - Last 24 Hours 11/01/18 11/01/18 11/01/18 11/01/18 11:00 11:52 12:15 12:22 Pulse 64 66 70 Resp 23 17 16 B/P (MAP) 180/92 (121) 175/86 (115) 189/91 (123) Pulse Ox 96 96 97 96 O2 Delivery Room Air Room Air Room Air Room Air 11/01/18 11/01/18 11/01/18 11/01/18 12:54 13:22 13:45 14:00 Temp 98.1 98.1 Pulse 70 66 64 Resp 21 15 20 B/P (MAP) 164/86 (112) 179/89 (119) 169/94 (119) Pulse Ox 96 96 96 O2 Delivery Room Air Room Air Room Air Room Air 11/01/18 11/01/18 11/01/18 11/01/18 15:00 15:02 15:32 19:11 Temp 98.1 98.0 98.1 98.0 Pulse 64 60 Resp 18 16 16 B/P (MAP) 169/94 (119) 163/86 (111) Pulse Ox 96 96 O2 Delivery Room Air Room Air Room Air 11/01/18 11/01/18 11/01/18 11/01/18 19:14 19:55 23:00 23:52 Temp 98.1 98.1 Pulse 66 B/P (MAP) 155/85 (108) Pulse Ox 95 O2 Delivery Room Air Room Air Room Air Room Air 11/02/18 11/02/18 11/02/18 11/02/18 00:22 03:00 04:16 07:00 Temp 98.5 98.2 98.5 98.2 Pulse 62 65 B/P (MAP) 154/86 (108) 160/88 (112) Pulse Ox 94 94 O2 Delivery Room Air Room Air Room Air Room Air 11/02/18 07:27 O2 Delivery Room Air Intake and Output 11/01/18 11/01/18 11/02/18 14:59 22:59 06:59 Intake Total 1000 ml 0 ml Output Total 0 ml Balance 1000 ml 0 ml 0 ml YFN NGUYEN MD Nov 02, 2018 10:32
[2018-11-02] MEDS ORDERED: ENALAPRILAT 1.25 MG/ML VIAL. IVP PRN (10:45)
--- NOTE | 2018-11-02 11:00 | RAD ---
ABDOMEN SUPINE UPRIGHT History: Small bowel obstruction Comparison: November 01, 2018 CT exam abdomen pelvis Findings: Single supine and single upright AP views of the abdomen are submitted. No free air is identified. There has been cholecystectomy. There is scattered gas in large and small bowel. There is loop of persistent dilated small bowel in the central and left inferior abdomen, fairly similar. Colon is not significantly dilated. Impression: 1. There is again dilated loop of small bowel overall similar, may be seen with partial obstruction. Electronically signed by: Sam Chen MD (11/02/2018 10:57 AM) [facility]
--- NOTE | 2018-11-02 12:43 | NUR ---
MAGNOLIA Patel attempted to place NG tube, patient did not tolerate well and asked for it to be immediately removed. Patient does not want to try another NG tube down the other nostril, Dr. Low notified.
[2018-11-02] MEDS ORDERED: cloNIDine TTS-1 1 PATCH PATCH.TDWK TD SCH (16:00)
[2018-11-02] MEDS: fentaNYL PF VIAL 100 MCG/2 ML VIAL IV PRN ×2 (16:08→20:58)
[2018-11-03] MEDS: fentaNYL PF VIAL 100 MCG/2 ML VIAL IV PRN ×5 (01:16→20:50)
[2018-11-03 03:35] VITALS: BP 130/76
[2018-11-03 07:00] VITALS: BP 148/76
[2018-11-03] MEDS: POTASSIUM CL 30MEQ D5-0.45NACL 1,000 ML IV SCH (08:16)
[2018-11-03] MEDS: NICOTINE 14MG PATCH. TD SCH (08:18)
[2018-11-03] MEDS: FAMOTIDINE 20 MG/2 ML VIAL IVP SCH ×2 (08:21→20:49)
[2018-11-03] MEDS ORDERED: CONTRAST GIVEN. MC PRN (09:30)
[2018-11-03] MEDS ORDERED: IOHEXOL 300 MG/ML 100ML VIAL. PO ONE (09:30)
--- NOTE | 2018-11-03 10:06 | PDOC ---
PROGRESS NOTES Chief Complaint Chief Complaint PErsistent sbo - conservative mx, 5th episode History hysterectomy, appendectomy, cholecystectomy Accelerated hypertension Tobaccosim Overweight BMI 32 History of Present Illness History of Present Illness still persistent SBO on imaging and clinically hence now having small bowel series K Low-on IV fluids PLAN: Start K containing and dextrose containing IVF at 80 mL an hour Small bowel series today Keep nothing by mouth Discussed with RN and GS Vitals Vitals Vital Signs Date Time Temp Pulse Resp B/P (MAP) Pulse Ox O2 Delivery O2 Flow Rate FiO2 11/03/18 09:10 93 Room Air 11/03/18 07:00 98.3 60 18 148/76 (100) 98.3 Physical Exam General: Alert, Oriented X3, Cooperative, No acute distress Heart: Regular rate, Normal S2 Lungs: Clear Abdomen: Soft, Other (ttp lower abdomen) Extremities: No clubbing Skin: No breakdown Review of Systems Review of Systems persistent abdominal pain, nausea, dry heaving, no chest pain, no SOA no fever Assessment and Plan Assessmemt and Plan Problems Medical Problems: (1) SBO (small bowel obstruction) Status: Acute Comment Review of Relevant I have reviewed the following items aba (where applicable) has been applied. Labs Laboratory Tests Test 11/02/18 03:50 White Blood Count 7.2 x10^3/uL (4.0-11.0) Red Blood Count 3.66 x10^6/uL (3.50-5.40) Hemoglobin 11.5 g/dL (12.0-15.5) Hematocrit 33.8 % (36.0-47.0) Mean Corpuscular Volume 92 fL (79-100) Mean Corpuscular Hemoglobin 31 pg (25-35) Mean Corpuscular Hemoglobin Concent 34 g/dL (31-37) Red Cell Distribution Width 13.1 % (11.5-14.5) Platelet Count 152 x10^3/uL (140-400) Neutrophils (%) (Auto) 69 % (31-73) Lymphocytes (%) (Auto) 20 % (24-48) Monocytes (%) (Auto) 8 % (0-9) Eosinophils (%) (Auto) 3 % (0-3) Basophils (%) (Auto) 0 % (0-3) Neutrophils # (Auto) 4.9 x10^3uL (1.8-7.7) Lymphocytes # (Auto) 1.4 x10^3/uL (1.0-4.8) Monocytes # (Auto) 0.6 x10^3/uL (0.0-1.1) Eosinophils # (Auto) 0.2 x10^3/uL (0.0-0.7) Basophils # (Auto) 0.0 x10^3/uL (0.0-0.2) Sodium Level 138 mmol/L (136-145) Potassium Level 3.5 mmol/L (3.5-5.1) Chloride Level 104 mmol/L (98-107) Carbon Dioxide Level 27 mmol/L (21-32) Anion Gap 7 (6-14) Blood Urea Nitrogen 10 mg/dL (7-20) Creatinine 0.7 mg/dL (0.6-1.0) Estimated GFR (Cockcroft-Gault) 90.9 Glucose Level 106 mg/dL (70-99) Calcium Level 8.1 mg/dL (8.5-10.1) Medications Current Medications Sodium Chloride 1,000 ml @ 1,000 mls/hr 1X ONCE IV Last administered on 11/01/18at 09:47; Start 11/01/18 at 09:30; Stop 11/01/18 at 10:29; Status DC Morphine Sulfate (Morphine Sulfate) 5 mg 1X ONCE IV Last administered on 11/01/18at 09:48; Start 11/01/18 at 09:30; Stop 11/01/18 at 09:31; Status DC Ondansetron HCl (Zofran) 4 mg 1X ONCE IV Last administered on 11/01/18at 09:45; Start 11/01/18 at 09:30; Stop 11/01/18 at 09:31; Status DC Iohexol (Omnipaque 300 Mg/ml) 75 ml 1X ONCE IV Last administered on 11/01/18at 10:19; Start 11/01/18 at 10:15; Stop 11/01/18 at 10:16; Status DC Info (CONTRAST GIVEN -- Rx MONITORING) 1 each PRN DAILY PRN MC SEE COMMENTS; Start 11/01/18 at 10:15; Stop 11/03/18 at 10:14 Morphine Sulfate (Morphine Sulfate) 5 mg 1X ONCE IV Last administered on 11/01/18at 12:15; Start 11/01/18 at 12:00; Stop 11/01/18 at 12:01; Status DC Morphine Sulfate (Morphine Sulfate) 4 mg PRN Q4HRS PRN IV SEVERE PAIN Last administered on 11/02/18at 12:36; Start 11/01/18 at 13:15 Ondansetron HCl (Zofran) 4 mg PRN Q8HRS PRN IV NAUSEA/VOMITING Last administered on 11/02/18at 04:17; Start 11/01/18 at 13:15; Stop 11/02/18 at 08:46; Status DC Ondansetron HCl (Zofran) 4 mg PRN Q8HRS PRN IV NAUSEA/VOMITING; Start 11/01/18 at 13:45; Stop 11/01/18 at 13:45; Status DC Morphine Sulfate (Morphine Sulfate) 4 mg PRN Q2HR PRN IV PAIN; Start 11/01/18 at 13:45; Stop 11/02/18 at 13:44; Status UNV Sodium Chloride 1,000 ml @ 100 mls/hr 1X ONCE IV Last administered on 11/01/18at 14:05; Start 11/01/18 at 13:45; Stop 11/01/18 at 23:44; Status DC Nicotine (Nicoderm Cq 14mg) 1 patch DAILY TD Last administered on 11/03/18 08:18; Start 11/01/18 at 15:00 Dextrose/Sodium Chloride 1,000 ml @ 100 mls/hr Q10H IV Last administered on 11/02/18at 23:31; Start 11/01/18 at 15:45; Stop 11/03/18 at 07:27; Status DC Ondansetron HCl (Zofran) 4 mg PRN Q6HRS PRN IV NAUSEA/VOMITING; Start 11/02/18 at 09:00 Famotidine (Pepcid Vial) 20 mg BID IVP Last administered on 11/03/18at 08:21; Start 11/02/18 at 09:00 Fentanyl Citrate (Fentanyl 2ml Vial) 50 mcg PRN Q2HR PRN IV MODERATE PAIN Last administered on 11/03/18at 08:18; Start 11/02/18 at 10:30 Enalaprilat (Vasotec Inj) 1.25 mg PRN Q6HRS PRN IVP HYPERTENSION Last administered on 11/02/18at 12:30; Start 11/02/18 at 10:45 Clonidine HCl (Catapres Tts-1) 1 patch Sa TD Last administered on 11/02/18at 15:49; Start 11/02/18 at 16:00 Potassium Chloride/Dextrose/ Sod Cl 1,000 ml @ 80 mls/hr [id number] IV Last administered on 11/03/18at 08:16; Start 11/03/18 at 07:30 Iohexol (Omnipaque 300 Mg/ml) 400 ml 1X ONCE PO ; Start 11/03/18 at 09:30; Stop 11/03/18 at 09:31; Status DC Info (CONTRAST GIVEN -- Rx MONITORING) 1 each PRN DAILY PRN MC SEE COMMENTS; Start 11/03/18 at 09:30; Stop 11/05/18 at 09:29 Active Scripts Active Lidocaine 1 Each Adh..patch 1 Each TP Q12HR PRN Please remove lidoderm patch for at least 12 hours daily. Prednisone 20 Mg Tablet 2 Tab PO DAILY Orphenadrine Citrate 100 Mg Tablet.er 1 Tab PO BID [place] 5-325 Tablet (Acetaminophen/Hydrocodone Bitart) 1 Each Tablet 1 Tab PO PRN Q6HRS PRN Lomotil Tablet (Diphenoxylate Hcl/Atropine) 1 Each Tablet 1 Tab PO QID Imitrex (Sumatriptan Succinate) 100 Mg Tablet 1 Tab PO UD Compazine (Prochlorperazine Maleate) 10 Mg Tablet 10 Mg PO TID 5 Days Zofran Odt (Ondansetron) 4 Mg Tab.rapdis 1 Tab SL Q8HRS Reported Lisinopril 20 Mg Tablet 1 Tab PO DAILY Vitals/I & O Vital Sign - Last 24 Hours 11/02/18 11/02/18 11/02/18 11/02/18 11:00 12:30 12:36 13:06 Temp 98.4 98.4 Pulse 63 63 B/P (MAP) 176/95 (122) 176/95 Pulse Ox 95 95 95 O2 Delivery Room Air Room Air Room Air 11/02/18 11/02/18 11/02/18 11/02/18 15:00 16:08 16:46 19:20 Temp 98.1 98.2 98.1 98.2 Pulse 63 65 70 Resp 18 B/P (MAP) 171/92 (118) 141/78 (99) 185/70 (108) Pulse Ox 96 96 96 O2 Delivery Room Air Room Air Room Air 11/02/18 11/02/18 11/02/18 11/03/18 20:00 20:58 23:28 01:16 Temp 98.6 98.6 Pulse 64 Resp 18 B/P (MAP) 148/81 (103) Pulse Ox 96 95 95 O2 Delivery Room Air Room Air Room Air Room Air 11/03/18 11/03/18 11/03/18 11/03/18 03:35 07:00 07:15 08:18 Temp 98.4 98.3 98.4 98.3 Pulse 70 60 Resp 18 18 B/P (MAP) 130/76 (94) 148/76 (100) Pulse Ox 96 93 93 O2 Delivery Room Air Room Air Room Air Room Air 11/03/18 09:10 Pulse Ox 93 O2 Delivery Room Air YFN NGUYEN MD Nov 03, 2018 10:06
--- NOTE | 2018-11-03 10:48 | PDOC ---
SURGICAL PROGRESS NOTE Subjective Pt seen during SBFT, reports feeling better, passing loose stools Vital Signs Vital Signs Date Time Temp Pulse Resp B/P (MAP) Pulse Ox O2 Delivery O2 Flow Rate FiO2 11/03/18 09:10 93 Room Air 11/03/18 07:00 98.3 60 18 148/76 (100) 98.3 I&O Intake and Output 11/03/18 07:00 # Voids 3 # Bowel Movements 1 General: Alert, Oriented X3, Cooperative, No acute distress Abdomen: Soft, No tenderness Labs Laboratory Tests Test 11/02/18 03:50 White Blood Count 7.2 x10^3/uL (4.0-11.0) Red Blood Count 3.66 x10^6/uL (3.50-5.40) Hemoglobin 11.5 g/dL (12.0-15.5) Hematocrit 33.8 % (36.0-47.0) Mean Corpuscular Volume 92 fL (79-100) Mean Corpuscular Hemoglobin 31 pg (25-35) Mean Corpuscular Hemoglobin Concent 34 g/dL (31-37) Red Cell Distribution Width 13.1 % (11.5-14.5) Platelet Count 152 x10^3/uL (140-400) Neutrophils (%) (Auto) 69 % (31-73) Lymphocytes (%) (Auto) 20 % (24-48) Monocytes (%) (Auto) 8 % (0-9) Eosinophils (%) (Auto) 3 % (0-3) Basophils (%) (Auto) 0 % (0-3) Neutrophils # (Auto) 4.9 x10^3uL (1.8-7.7) Lymphocytes # (Auto) 1.4 x10^3/uL (1.0-4.8) Monocytes # (Auto) 0.6 x10^3/uL (0.0-1.1) Eosinophils # (Auto) 0.2 x10^3/uL (0.0-0.7) Basophils # (Auto) 0.0 x10^3/uL (0.0-0.2) Sodium Level 138 mmol/L (136-145) Potassium Level 3.5 mmol/L (3.5-5.1) Chloride Level 104 mmol/L (98-107) Carbon Dioxide Level 27 mmol/L (21-32) Anion Gap 7 (6-14) Blood Urea Nitrogen 10 mg/dL (7-20) Creatinine 0.7 mg/dL (0.6-1.0) Estimated GFR (Cockcroft-Gault) 90.9 Glucose Level 106 mg/dL (70-99) Calcium Level 8.1 mg/dL (8.5-10.1) Problem List Problems Medical Problems: (1) SBO (small bowel obstruction) Status: Acute Assessment/Plan SBO, appears improved SBFT if looks good should be able to start clears CHANELLE TORRES MD Nov 03, 2018 10:48
--- NOTE | 2018-11-03 12:03 | RAD ---
Exam performed: Small bowel follow-through. HISTORY: Small bowel obstruction. DATE OF SERVICE: 11/03/2018. COMPARISON: CT abdomen and pelvis from 11/01/2018. Discussion: A [employer] attorney film of the abdomen demonstrates nonspecific bowel gas pattern. Previous cholecystectomy. Patient was administered 2 cups of Omnipaque 300 sequential images of the abdomen are obtained. There is prompt emptying of contrast into the small bowel. Colon was filled with contrast at 40 minutes. Attempts were made to obtain spot images, however patient needed to use the restroom every time the attempt was made. A KUB obtained at approximately 60 minutes demonstrated radiographic contrast throughout the colon including rectosigmoid region. No convincing evidence of obstruction was identified. IMPRESSION: No convincing evidence of obstruction seen. Radiographic contrast seen throughout the colon including the rectosigmoid region within an hour. Electronically signed by: Augusta Ramsey MD (11/03/2018 12:00 PM) [facility]
[2018-11-03] MEDS ORDERED: ONDANSETRON ODT 4 MG TAB.RAPDIS. PO PRN (12:15)
[2018-11-03] MEDS ORDERED: LIDOCAINE (700MG/PATCH) PATCH. TP PRN (12:15)
[2018-11-03] MEDS: CYCLOBENZAPRINE 10 MG TABLET. PO SCH ×2 (12:57→20:50)
[2018-11-03] MEDS: predniSONE 20 MG TABLET PO SCH (12:57)
[2018-11-03] MEDS: PROCHLORPERAZINE 5 MG TABLET. PO SCH ×2 (12:57→20:48)
[2018-11-03] MEDS: LISINOPRIL 20 MG TABLET PO SCH (12:58)
[2018-11-03] MEDS ORDERED: DIPHENOXYLATE/ATROPINE TABLET. PO SCH (13:00)
[2018-11-03] MEDS ORDERED: SUMAtriptan SUCCINATE 100 MG TABLET PO PRN (13:00)
[2018-11-03 15:00] VITALS: BP 160/80
[2018-11-03 19:20] VITALS: BP 141/82
[2018-11-03 23:20] VITALS: BP 128/73
[2018-11-04] MEDS: POTASSIUM CL 30MEQ D5-0.45NACL 1,000 ML IV SCH ×2 (00:39→08:30)
[2018-11-04 03:20] VITALS: BP 124/74
[2018-11-04] MEDS: HYDROcodone/APAP 5/325MG 1 TAB TABLET PO PRN ×3 (04:53→14:06)
[2018-11-04 07:00] VITALS: BP 126/65
--- NOTE | 2018-11-04 08:57 | PDOC ---
SURGICAL PROGRESS NOTE Subjective pain about a 5, which is better having stools tolerating diet Vital Signs Vital Signs Date Time Temp Pulse Resp B/P (MAP) Pulse Ox O2 Delivery O2 Flow Rate FiO2 11/04/18 07:00 98.0 60 16 126/65 (85) Room Air 94.0 98.0 11/04/18 03:20 95 I&O Intake and Output 11/04/18 06:59 Intake Total 540 ml Balance 540 ml Intake Oral 540 ml # Voids 3 # Bowel Movements 6 General: Alert, Oriented X3, Cooperative, No acute distress Abdomen: Soft, Other (RLQ ttp) Labs Laboratory Tests Test 11/03/18 01:30 Clostridium difficile Toxin B Gene Negative (Negative) Problem List Problems Medical Problems: (1) SBO (small bowel obstruction) Status: Acute Assessment/Plan no obstruction on SBFT diet as tolerated no surgical plans BRAULIO BAKER SERVER SUPPORT TECHNICIAN Nov 04, 2018 08:57
[2018-11-04] MEDS: PROCHLORPERAZINE 5 MG TABLET. PO SCH ×2 (10:58→14:08)
[2018-11-04] MEDS: CYCLOBENZAPRINE 10 MG TABLET. PO SCH ×2 (10:59→14:08)
[2018-11-04] MEDS: LISINOPRIL 20 MG TABLET PO SCH (10:59)
[2018-11-04 11:00] VITALS: BP 128/80
[2018-11-04] MEDS: predniSONE 20 MG TABLET PO SCH (11:00)
[2018-11-04] MEDS: NICOTINE 14MG PATCH. TD SCH (11:01)
[2018-11-04] MEDS: FAMOTIDINE 20 MG/2 ML VIAL IVP SCH (11:02)
[2018-11-04] MEDS ORDERED: DOCU-109 PO (11:54)
[2018-11-04] MEDS ORDERED: HYDR-3164 PO (11:54)
--- NOTE | 2018-11-04 16:37 | PDOC3 ---
Discharge Summary Visit Information Date of Admission: Nov 01, 2018 Date of Discharge: Nov 04, 2018 Final Diagnosis recurrent sbo - conservative mx, 5th episode, s/p surg 2012 History hysterectomy, appendectomy, cholecystectomy Accelerated hypertension Tobaccosim Overweight BMI 32 Problems Medical Problems: (1) SBO (small bowel obstruction) Status: Acute Brief Hospital Course Allergies Allergies Coded Allergies Type Severity Reaction Last Updated Verified aspirin Adverse Reaction Severe bleeding 12/14/15 Yes ibuprofen Adverse Reaction Severe bleeding 12/14/15 Yes Vital Signs Vital Signs Date Time Temp Pulse Resp B/P (MAP) Pulse Ox O2 Delivery O2 Flow Rate FiO2 11/04/18 14:06 Room Air 11/04/18 11:00 97.9 59 18 128/80 (96) 97 97.9 11/04/18 07:00 94.0 Lab Results Laboratory Tests Test 11/03/18 01:30 Clostridium difficile Toxin B Gene Negative (Negative) Brief Hospital Course Ms. Encarnacion is a 43 old female with prior SBO, prior surg for same 6 years ago acute abd pain, nausea, unable to take PO, she refused NG tube, went NPO, pain improved, cont curretn able to eat and had stooled by DC Discharge Information Condition at Discharge: Improved Follow Up: Weeks Disposition/Orders: D/C to Home Scheduled Docusate Sodium (Colace) 100 Mg Capsule, 100 MG PO DAILY for prevent constipation, #30 Prescribed by: ELVA LAWTON on 11/04/18 1154 Lisinopril (Lisinopril) 20 Mg Tablet, 1 TAB PO DAILY, #30 Ref 5 (Reported) Entered as Reported by: TRICIA LOPEZ on 12/14/15 0357 Last Action: Continued on 11/03/18 1213 by YFN NGUYEN Ondansetron (Zofran Odt) 4 Mg Tab.rapdis, 1 TAB SL Q8HRS, #15 Prescribed by: ADRIANA BAIRD MD on 08/12/15 1525 Last Action: Continued on 11/03/18 1213 by YFN NGUYEN Sumatriptan Succinate (Imitrex) 100 Mg Tablet, 1 TAB PO UD, #9 Ref 1 Prescribed by: REMINGTON ZAMORANO MD on 03/18/17 1727 Last Action: Continued on 11/03/18 1213 by YFN NGUYEN Scheduled PRN Hydrocodone/Apap 5-325 ([place] 5-325 Tablet) 1 Each Tablet, 1 TAB PO PRN Q6HRS PRN for PAIN, #10 Ref 0 Prescribed by: ELVA LAWTON on 11/04/18 1154 Discontinued Medications Diphenoxylate Hcl/Atropine (Lomotil Tablet) 1 Each Tablet, 1 TAB PO QID, #20 Prescribed by: REMINGTON ZAMORANO MD on 03/18/171726 Last Action: Continued on 11/03/181212 by YFN NGUYEN Lidocaine (Lidocaine PATCH ) 1 Each Adh..patch, 1 EACH TP Q12HR PRN for PAIN, #10 Please remove lidoderm patch for at least 12 hours daily. Prescribed by: LISA HOUSE D.O. on 01/12/18535 Last Action: Continued on 11/03/181212 by YFN NGUYEN Orphenadrine Citrate (Orphenadrine Citrate) 100 Mg Tablet.er, 1 TAB PO BID, #14 Ref 0 Prescribed by: LISA HOUSE D.O. on 01/12/18535 Last Action: Converted on 11/03/181212 by YFN NGUYEN Prednisone (Prednisone) 20 Mg Tablet, 2 TAB PO DAILY, #8 Prescribed by: LISA HOUSE D.O. on 01/12/18535 Last Action: Continued on 11/03/181212 by YFN NGUYEN Prochlorperazine Maleate (Compazine) 10 Mg Tablet, 10 MG PO TID for 5 Days, #15 Prescribed by: REMINGTON ZAMORANO MD on 03/18/171726 Last Action: Converted on 11/03/181212 by YFN NGUYEN Patient Instructions Patient Instructions face to face < 30 ELVA LAWTON MD Nov 04, 2018 16:37
--- NOTE | 2018-11-04 18:14 | NUR ---
Pt was discharged to home at 1412 today in stable condition with all personal belongings after reviewing all pertinent information including education, medications, follow up and at home care. Pt was escorted by staff and driven home by her .
== END 2018-11-04 14:12 | disposition home or self-care (01) | DRG 390 ==
LOC: ER 09:06 → 4 NORTH 13:15
PROVIDERS: ADMIT Internal Medicine; ATTEND Internal Medicine
DX: K56.609 Unspecified intestinal obstruction, unspecified as to partial versus complete obstruction (principal); E66.9 Obesity, unspecified; F17.210 Nicotine dependence, cigarettes, uncomplicated; I10 Essential (primary) hypertension; Z53.20 Procedure and treatment not carried out because of patient's decision for unspecified reasons; Z85.41 Personal history of malignant neoplasm of cervix uteri; Z87.19 Personal history of other diseases of the digestive system; Z68.32 Body mass index [BMI] 32.0-32.9, adult; Z90.49 Acquired absence of other specified parts of digestive tract; Z90.710 Acquired absence of both cervix and uterus
CPT/HCPCS: 36415; 74021; 74177; 74250; 80048; 80053; 80307; 81001; 83690; 85025; 87493; 96361; 96374; 96375; 96376; G0480; J2270; J2405; J3010; J3490; J7030; J7512; Q0164; Q9967; 99285-25

== ENCOUNTER 2019-07-23 03:53 | Emergency (ER) | payer SELFPAY ==
[~2019-07-23] VITALS: Ht 144.8 cm; Wt 66.0 kg
[~2019-07-23 03:53] MED LIST changes: +DOCU-109 PO
[2019-07-23] MEDS: HYDROcodone/APAP 7.5/325MG 1 TAB TABLET PO ONE (04:32)
[2019-07-23] MEDS ORDERED: METH4TAB2 PO (04:40)
[2019-07-23] MEDS ORDERED: HYDR-3164 PO (04:40)
--- NOTE | 2019-07-23 04:40 | PHYS DOC ---
Past Medical History Past Medical History: Gallstones, Other Additional Past Medical Histor: BOWEL OBSTRUCTION, CERVICAL CANCER, RADIATION, Past Surgical History: Appendectomy, Cholecystectomy, Hysterectomy Additional Past Surgical Histo: BOWEL RESECTION, HYSTERECTOMY D/T CERVICAL CA Smoking Status: Current Every Day Smoker Alcohol Use: Rarely Drug Use: None Adult General Chief Complaint Chief Complaint: UPPER EXTREMITY PAIN HPI HPI Patient is a 44 year old female who presents with complaint of right shoulder pain that started yesterday. Patient indicates that pain is a 7 out of 10 and she describes it as a deep ache. Patient states that she is not able to lift her arm up to shoulder level due to worsened pain. Patient denies any recent injuries and states that she has had no injections/immunizations in that arm.[] Review of Systems Review of Systems Constitutional: Denies fever or chills [] Respiratory: Denies cough or shortness of breath [] Cardiovascular: No additional information not addressed in HPI [] Musculoskeletal: [place] of right shoulder pain [] Integument: Denies rash or skin lesions [] Current Medications Current Medications Current Medications Medications (Trade) Dose Ordered Sig/Basilia Start Time Stop Time Status Last Admin Dose Admin Acetaminophen/ Hydrocodone Bitart (Lortab 7.5/325) 1 tab 1X ONCE 07/23/19 04:30 07/23/19 04:31 DC 07/23/19 04:32 1 TAB Allergies Allergies Allergies Coded Allergies Type Severity Reaction Last Updated Verified aspirin Adverse Reaction Severe bleeding 12/14/15 Yes ibuprofen Adverse Reaction Severe bleeding 12/14/15 Yes Physical Exam Physical Exam Constitutional: Well developed, well nourished, no acute distress, non-toxic appearance. [] Cardiovascular:Heart rate regular rhythm, no murmur [] Lungs & Thorax: Bilateral breath sounds clear to auscultation [] Extremities: Examination of right shoulder demonstrates diffuse tenderness with pain on flexion and abduction, limiting range of motion. [] Neurologic: Alert and oriented X 3, no focal deficits noted. [] Current Patient Data Vital Signs Vital Signs Date Time Temp Pulse Resp B/P (MAP) Pulse Ox O2 Delivery O2 Flow Rate FiO2 07/23/19 04:32 16 99 Room Air 07/23/19 04:04 98.1 72 180/60 (100) 98.1 EKG EKG [] Radiology/Procedures Radiology/Procedures [] Course & Med Decision Making Course & Med Decision Making Pertinent Labs and Imaging studies reviewed. (See chart for details) [] Dragon Disclaimer Dragon Disclaimer This electronic medical record was generated, in whole or in part, using a voice recognition dictation system. Departure Departure Impression: Primary Impression: Right shoulder pain Disposition: HOME, SELF-CARE Condition: STABLE Referrals: NO PCP (PCP) Patient Instructions: Shoulder Pain Scripts Hydrocodone/Apap 5-325 (NORCO 5-325 TABLET) 1 Each Tablet 1-2 EACH PO PRN Q6HRS PRN for PAIN, #15 as needed for pain Prov: STEPHANIE MUSTAFA Jr. DO 07/23/19 Methylprednisolone (MEDROL) 4 Mg Tab.ds.pk 1 PKG PO UD, #1 PKG Prov: STEPHANIE MUSTAFA Jr. DO 07/23/19 Problem Qualifiers Primary Impression: Right shoulder pain Chronicity: acute Qualified Codes: M25.511 - Pain in right shoulder STEPHANIE MUSTAFA Jr. DO Jul 23, 2019 04:40
--- NOTE | 2019-07-23 04:42 | RAD ---
SHOULDER 2+V RIGHT DATE: 07/23/2019 4:10 AM INDICATION: Pain COMPARISON: None. FINDINGS: Bones: There is no evidence of acute fracture or dislocation. Joints: Mild degenerative changes of the acromioclavicular joint. Glenohumeral joint is congruent. The acromiohumeral distance is not narrowed. Miscellaneous: Calcification along the posterolateral aspect of the humeral head, which may represent calcific tendinosis. Accessory azygos fissure. IMPRESSION: No evidence of acute fracture. Electronically signed by: Sam Parks MD (07/23/2019 4:39 AM) [id number]
[2019-07-23 04:55] VITALS: BP 185/88
== END 2019-07-23 04:55 | disposition home or self-care (01) ==
LOC: ER 03:53
DX: M25.511 Pain in right shoulder (principal); F17.200 Nicotine dependence, unspecified, uncomplicated; Z87.442 Personal history of urinary calculi; Z85.89 Personal history of malignant neoplasm of other organs and systems; Z90.89 Acquired absence of other organs; Z90.49 Acquired absence of other specified parts of digestive tract; Z90.710 Acquired absence of both cervix and uterus; Z98.890 Other specified postprocedural states; Z88.6 Allergy status to analgesic agent; Z88.2 Allergy status to sulfonamides
CPT/HCPCS: 73030; 99283

== ENCOUNTER 2020-11-04 19:34 | Emergency (ER) | payer SELFPAY ==
[~2020-11-04] VITALS: Ht 144.8 cm; Wt 66.4 kg
[~2020-11-04 19:34] MED LIST changes: +ACET325T9 PO; -LISI-334 PO; +LISI20TA18 PO; +METH4TAB2 PO; +PHEN177S8 PO; +POTA20TA4 PO; +SIME80TA14 PO
[2020-11-04] MEDS ORDERED: HYDROcodone/APAP 5/325MG 1 TAB TABLET PO ONE (20:15)
--- NOTE | 2020-11-04 20:26 | RAD ---
EXAM: AP, lateral and lumbosacral spot views of the lumbar spine DATE: 11/04/2020 8:12 PM INDICATION: Reason: left radiculopathy / Spl. Instructions: / History: COMPARISON: No Prior FINDINGS: Small ribs are seen at T12. 4 nonrib-bearing lumbar-type vertebral bodies. Vertebral body heights are preserved. Mild disc height loss with at L1-2. Moderate disc height loss at T12-L1. No spondylolisth esis. Surgical clips in the right upper quadrant. Moderate colonic stool content. Multilevel facet de generative changes IMPRESSION: 1. Multilevel spondylosis as above 2. Negative acute fracture or subluxation. Electronically signed by: Osmel Flores MD (11/04/2020 8:23 PM) [facility]
--- NOTE | 2020-11-04 22:07 | ED.ADGEN ---
Past Medical History Past Medical History: Gallstones, Hypertension, Other Additional Past Medical Histor: BOWEL OBSTRUCTION, CERVICAL CANCER, RADIATION, [place] Past Surgical History: Appendectomy, Cholecystectomy, Hysterectomy Additional Past Surgical Histo: BOWEL RESECTION, HYSTERECTOMY D/T CERVICAL CA Smoking Status: Current Every Day Smoker Alcohol Use: None Drug Use: None General Adult EDM: Chief Complaint: LOWER EXT PAIN HPI: HPI: Patient is a 45 year old female coming in for 1 week of left leg pain. Patient states the pain is on her outer left lower leg down to her foot and the radiates up to her hip. Patient states she has seen her chiropractor and massage therapist but the pain has been getting worse. Denies any falls, recent fevers, bowel bladder dysfunction, trauma, or history of blood clots. She has been short staffed at work a bit on her feet a lot, patient states has been carrying things and running back and forth. Patient later stated after so the pain was in the lateral side of her lower leg up to her hips and buttocks stating that the pain is mainly in her young. Review of Systems: Review of Systems: All other systems within normal limits except for as noted in the HPI Current Medications: Current Medications Medications (Trade) Dose Ordered Sig/Basilia Start Time Stop Time Status Last Admin Dose Admin Acetaminophen/ Hydrocodone Bitart (Lortab 5/325) 1 tab 1X ONCE 11/04/20 20:15 11/04/20 20:16 DC 11/04/20 20:25 1 TAB Orphenadrine Citrate (Norflex) 60 mg 1X ONCE 11/04/20 22:30 11/04/20 22:34 DC 11/04/20 22:39 60 MG Allergies: Allergies: Allergies Coded Allergies Type Severity Reaction Last Updated Verified aspirin Adverse Reaction Severe bleeding 12/14/15 Yes ibuprofen Adverse Reaction Severe bleeding 12/14/15 Yes Physical Exam: PE: Constitutional: Well developed, well nourished, no acute distress, non-toxic appearance. [] HENT: Normocephalic, atraumatic, bilateral external ears normal, nose normal. [] Eyes: PERRLA, conjunctiva normal, no discharge. [] Neck: No rigidity, supple, no stridor. [] Cardiovascular: Regular rate and rhythm, brisk cap refill [] Lungs & Thorax: Non labored symmetric respirations, no tachypnea or respiratory distress [] Abdomen: Soft, nondistended. Skin: Warm, dry, no erythema, no rash. [] Back: Unremarkable Extremities: No deformities, range of motion grossly intact, no lower extremity edema. Tenderness over left piriformis area, no tenderness over thigh, patient has tenderness over anterior left lower leg, compartments are soft, no focal calf tenderness. No notable swelling of left lower extremity compared to right. [] Neurologic: Alert and oriented X 3, no focal deficits noted. [] Psychologic: Affect normal, judgement normal, mood normal. [] Current Patient Data: Vital Signs: Vital Signs Date Time Temp Pulse Resp B/P (MAP) Pulse Ox O2 Delivery O2 Flow Rate FiO2 11/04/20 21:28 20 98 Room Air 11/04/20 19:45 98.2 68 176/100 (90) 98.2 EKG: EKG: [] Heart Score: C/O Chest Pain: No Risk Factors: Risk Factors: DM, Current or recent (<one month) smoker, HTN, HLP, family history of CAD, obesity. Risk Scores: Score 0 - 3: 2.5% MACE over next 6 weeks - Discharge Home Score 4 - 6: 20.3% MACE over next 6 weeks - Admit for Clinical Observation Score 7 - 10: 72.7% MACE over next 6 weeks - Early Invasive Strategies Radiology/Procedures: Radiology/Procedures: [facility] [address] [facility] [place] [address] IMAGING REPORT Signed PATIENT: ELIESER WALTON ACCOUNT: [id number] : 1975 LOCATION: ER AGE: 45 SEX: F EXAM STATUS: REG ER ORD. PHYSICIAN: ZAKIA KELSEY MD REASON: left radiculopathy PROCEDURE: LUMBAR SPINE 2-3V EXAM: AP, lateral and lumbosacral spot views of the lumbar spine DATE: 11/04/2020 8:12 PM INDICATION: Reason: left radiculopathy / Spl. Instructions: / History: COMPARISON: No Prior FINDINGS: Small ribs are seen at T12. 4 nonrib-bearing lumbar-type vertebral bodies. Vertebral body heights are preserved. Mild disc height loss with at L1-2. Moderate disc height loss at T12-L1. No spondylolisthesis. Surgical clips in the right upper quadrant. Moderate colonic stool content. Multilevel facet degenerative changes IMPRESSION: 1. Multilevel spondylosis as above 2. Negative acute fracture or subluxation. Electronically signed by: Osmel Veronica MD (11/04/2020 8:23 PM) [facility] DICTATED and SIGNED BY: OSMEL VERONICA MD DATE: 11/04/[id number] 0 [][facility] [address] [place] [address] IMAGING REPORT Signed PATIENT: ELIESER WALTON ACCOUNT: [id number] : 1975 LOCATION: ER AGE: 45 SEX: F EXAM STATUS: REG ER ORD. PHYSICIAN: ZAKIA KELSEY MD REASON: pain, swelling PROCEDURE: VENOUS LOWER EXTREMITY LEFT Examination: LEFT LOWER EXTREMITY - UNILATERAL VENOUS DOPPLER Technique: Ultrasound evaluation of the left lower extremity was performed from the groin to the upper calf with huerta scale, spectral and color doppler evaluation. Indication: Leg swelling Comparison: None Findings: There is normal venous flow and compressibility of left common femoral vein, femoral vein, popliteal vein, and visualized proximal calf veins. Impression: No evidence for deep vein thrombosis of left lower extremity from the level of the calf veins to the groins. Electronically signed by: Osmel Veronica MD (11/04/2020 10:33 PM) [facility] DICTATED and SIGNED BY: OSMEL VERONICA MD DATE: 11/04/205551HLN8 0 [address] [place], [place] [id number] IMAGING REPORT Signed PATIENT: ELIESER WALTON ACCOUNT: [id number] : 1975 LOCATION: ER AGE: 45 SEX: F EXAM STATUS: REG ER ORD. PHYSICIAN: ZAKIA KELSEY MD REASON: pain, swelling PROCEDURE: VENOUS LOWER EXTREMITY LEFT Examination: LEFT LOWER EXTREMITY - UNILATERAL VENOUS DOPPLER Technique: Ultrasound evaluation of the left lower extremity was performed from the groin to the upper calf with huerta scale, spectral and color doppler evaluation. Indication: Leg swelling Comparison: None Findings: There is normal venous flow and compressibility of left common femoral vein, femoral vein, popliteal vein, and visualized proximal calf veins. Impression: No evidence for deep vein thrombosis of left lower extremity from the level of the calf veins to the groins. Electronically signed by: Osmel Veronica MD (11/04/2020 10:33 PM) [facility] DICTATED and SIGNED BY: OSMEL VERONICA MD DATE: 11/04/20 [id number] 0 [facility] [address] [place] [address] IMAGING REPORT Signed PATIENT: ELIESER WALTON ACCOUNT: [id number] : 1975 LOCATION: ER AGE: 45 SEX: F EXAM STATUS: REG ER ORD. PHYSICIAN: ZAKIA KELSEY MD REASON: young pain PROCEDURE: TIBIA FIBULA LEFT Examination: 2 views of the left tibia and fibula HISTORY: History young pain COMPARISON: None available FINDINGS: The alignment of the tibia and fibula grossly appears unremarkable. There is no acute fracture. Large enthesophyte formation identified in the posterior and inferior calcaneus. IMPRESSION: No acute osseous findings. Electronically signed by: Joon Perez MD (11/05/2020 12:29 AM) [id number] DICTATED and SIGNED BY: JOON PEREZ MD DATE: 11/05/20 [id number] 0 Course & Med Decision Making: Course & Med Decision Making Pertinent Labs and Imaging studies reviewed. (See chart for details) Patient's work-up unremarkable. Patient initially complaining of pain right leg up to her hip implant to piriformis area. When discussing results with patient she is now complaining of pain in her young she feels like it is in the bone. Tenderness to palpation along her young, along with soft anterior compartments. No reason for patient to have a compartment syndrome as well as no trauma. Discussed with patient the possible of shinsplints from repetitive stress fractures and not resting. [] Dragon Disclaimer: Dragon Disclaimer: This electronic medical record was generated, in whole or in part, using a voice recognition dictation system. Departure Departure Impression: Primary Impression: Piriformis syndrome of left side Additional Impression: Pain in tibia Disposition: HOME / SELF CARE / HOMELESS Condition: STABLE Referrals: NO PCP (PCP) Patient Instructions: RICE - Routine Care for Injuries Scripts Hydrocodone Bit/Acetaminophen (HYDROCODONE-APAP 5-325 ) 1 Tab Tablet 1 TAB PO PRN Q6HRS PRN for PAIN for 3 Days, #15 TAB 0 Refills Prov: ZAKIA KELSEY MD 11/05/20 Problem Qualifiers ZAKIA KELSEY MD Nov 04, 2020 22:07
[2020-11-04] MEDS ORDERED: ORPHENADRINE CITRATE 60 MG/2 ML VIAL. IM ONE (22:30)
--- NOTE | 2020-11-04 22:35 | RAD ---
Examination: LEFT LOWER EXTREMITY - UNILATERAL VENOUS DOPPLER Technique: Ultrasound evaluation of the left lower extremity was performed from the groin to the uppe r calf with huerta scale, spectral and color doppler evaluation. Indication: Leg swelling Comparison: None Findings: There is normal venous flow and compressibility of left common femoral vein, femoral vein, popliteal vein, and visualized proximal calf veins. Impression: No evidence for deep vein thrombosis of left lower extremity from the level of the calf v eins to the groins. Electronically signed by: Osmel Flores MD (11/04/2020 10:33 PM) [facility]
--- NOTE | 2020-11-05 00:31 | RAD ---
Examination: 2 views of the left tibia and fibula HISTORY: History young pain COMPARISON: None available FINDINGS: The alignment of the tibia and fibula grossly appears unremarkable. There is no acute fracture. Large enthesophyte formation identified in the posterior and inferior calcaneus. IMPRESSION: No acute osseous findings. Electronically signed by: Joon Hinojosa MD (11/05/2020 12:29 AM) [id number]
[2020-11-05] MEDS ORDERED: HYDR-2761 PO (00:55)
[2020-11-05 01:00] VITALS: BP 153/88
[2020-11-05] MEDS ORDERED: HYDROcodone/APAP 7.5/325MG 1 TAB TABLET PO ONE (01:00)
== END 2020-11-05 01:08 | disposition home or self-care (01) ==
LOC: ER 19:34
DX: G57.02 Lesion of sciatic nerve, left lower limb (principal); M79.662 Pain in left lower leg; I10 Essential (primary) hypertension; F17.200 Nicotine dependence, unspecified, uncomplicated; Z88.6 Allergy status to analgesic agent
CPT/HCPCS: 72100; 73590; 93971; 96372; 99284; J2360